=== PATIENT | male | born 1975 | race Caucasian/White ===

== ENCOUNTER 2019-11-22 08:19 | Emergency (ER) | payer OTHER ==
[~2019-11-22] VITALS: Ht 170.2 cm; Wt 72.2 kg
[2019-11-22 09:38] LABS: BILIRUBIN,URINE NEGATIVE (NEG); CLARITY,URINE CLEAR; COLOR,URINE YELLOW; NITRITE,URINE NEGATIVE (NEG); PH,URINE 5.5 (<5.0-8.0); PROTEIN,URINE NEGATIVE (NEG-TRACE); UROBILINOGEN,URINE 0.2 mg/dL (0.2 mg/dL)
[2019-11-22 09:42] LABS: AMPHETAMINE/METHAMPHETAMINE NEG (NEG); BARBITURATES NEG (NEG); BENZODIAZEPINES NEG (NEG); CANNABINOIDS NEG (NEG); COCAINE NEG (NEG); METHADONE NEG (NEG); OPIATES NEG (NEG); PHENCYCLIDINE NEG (NEG)
[2019-11-22 09:49] LABS: BACTERIA,URINE FEW /HPF (0-FEW); SQUAMOUS EPITHELIAL CELL,UR FEW /LPF
[2019-11-22 09:50] LABS: RBC,URINE OCC /HPF (0-2)
[2019-11-22] MEDS ORDERED: IV NORMAL SALINE 1000ML BAG 1,000 ML IV ONE (10:00)
[2019-11-22 10:04] LABS: BASO # 0.1 x10^3/uL (0.0-0.2); BASO % 1 % (0-3); EOS # 0.2 x10^3/uL (0.0-0.7); EOS % 3 % (0-3); HEMATOCRIT 43.1 % (39.0-53.0); HEMOGLOBIN 15.1 g/dL (13.0-17.5); LYMPH # 2.3 x10^3/uL (1.0-4.8); LYMPH % 38 % (24-48); MEAN CORPUSCULAR HEMOGLOBIN 32 pg (25-35); MEAN CORPUSCULAR HGB CONC 35 g/dL (31-37); MEAN CORPUSCULAR VOLUME 92 fL (79-100); MONO # 0.6 x10^3/uL (0.0-1.1); MONO % 9 % (0-9); NEUT % 49 % (31-73); PLATELET COUNT 208 x10^3/uL (140-400); RED BLOOD COUNT 4.67 x10^6/uL (4.30-5.70); RED CELL DISTRIBUTION WIDTH 12.9 % (11.5-14.5); WHITE BLOOD COUNT 6.2 x10^3/uL (4.0-11.0)
[2019-11-22 10:13] LABS: CALCIUM 8.6 mg/dL (8.5-10.1); CREATININE 1.1 mg/dL (0.7-1.3); GFR 72.7; POTASSIUM 4.7 mmol/L (3.5-5.1)
[2019-11-22 10:21] LABS: ALBUMIN 3.6 g/dL (3.4-5.0); ALBUMIN/GLOBULIN RATIO 1.2 (1.0-1.7); MAGNESIUM 2.2 mg/dL (1.8-2.4); TOTAL BILIRUBIN 0.3 mg/dL (0.2-1.0); TOTAL PROTEIN 6.6 g/dL (6.4-8.2)
--- NOTE | 2019-11-22 10:38 | RAD ---
EXAM: Head CT without contrast. HISTORY: Headache. TECHNIQUE: Computed tomographic images of the head were obtained without contrast. *One or more of the following individualized dose reduction techniques were utilized for this examination: 1. Automated exposure control. 2. Adjustment of the mA and/or kV according to patient size. 3. Use of iterative reconstruction technique. COMPARISON: None. FINDINGS: There is no acute or subacute extra-axial or intraparenchymal hemorrhage. There is no mass effect or midline shift. There is no hydrocephalus. The snider-white matter differentiation pattern is intact. There is an incidental right meek bullosa. There is mild ethmoid sinus mucosal thickening. The mastoid air cells are clear. The orbits are unremarkable. There is no calvarial lesion. IMPRESSION: No acute intracranial findings. Electronically signed by: Makayla Escamilla MD (11/22/2019 10:35 AM) [id number]
--- NOTE | 2019-11-22 11:28 | PHYS DOC ---
Past Medical History Past Medical History: No Pertinent History Past Surgical History: No Surgical History Smoking Status: Never Smoker Alcohol Use: Occasionally General Adult EDM: Chief Complaint: DIZZY/LIGHT HEADED HPI: HPI: Patient is a 44 year old male who presented to ER today for evaluation of nausea general weakness, headache, dizziness for 4 days. Patient denies any abdominal pain, no fever, no cough. Patient also complained of pain with urination, has the urge to urinate but not much coming out. Patient denies being exposed to anybody who tested positive for COVID-19. Review of Systems: Review of Systems: Constitutional: Denies fever or chills. [] Eyes: Denies change in visual acuity. [] HENT: Denies nasal congestion or sore throat. [] Respiratory: Denies cough or shortness of breath. [] Cardiovascular: Denies chest pain or edema. [] GI: Denies abdominal pain, nausea, vomiting, bloody stools or diarrhea. [] : Positive for dysuria and urgency Musculoskeletal: Denies back pain or joint pain. [] Integument: Denies rash. [] Neurologic: Positive headache, positive for general weakness.] Endocrine: Denies polyuria or polydipsia. [] Lymphatic: Denies swollen glands. [] Psychiatric: Denies depression or anxiety. [] Heart Score: Risk Factors: Risk Factors: DM, Current or recent (<one month) smoker, HTN, HLP, family history of CAD, obesity. Risk Scores: Score 0 - 3: 2.5% MACE over next 6 weeks - Discharge Home Score 4 - 6: 20.3% MACE over next 6 weeks - Admit for Clinical Observation Score 7 - 10: 72.7% MACE over next 6 weeks - Early Invasive Strategies Current Medications: Current Medications Medications (Trade) Dose Ordered Sig/Marcela Start Time Stop Time Status Last Admin Dose Admin Sodium Chloride 1,000 ml @ 1,000 mls/hr 1X ONCE 11/22/19 10:00 11/22/19 10:59 DC 11/22/19 10:00 1,000 MLS/HR Allergies: Allergies: Allergies Coded Allergies Type Severity Reaction Last Updated Verified No Known Drug Allergies 11/22/19 No Physical Exam: PE: Constitutional: Well developed, well nourished, no acute distress, non-toxic appearance. [] HENT: Normocephalic, atraumatic, bilateral external ears normal, oropharynx moist, no oral exudates, nose normal. [] Eyes: PERRLA, EOMI, conjunctiva normal, no discharge. [] Neck: Normal range of motion, no tenderness, supple, no stridor. [] Cardiovascular:Heart rate regular rhythm, no murmur [] Lungs & Thorax: Bilateral breath sounds clear to auscultation [] Abdomen: Bowel sounds normal, soft, no tenderness, no masses, no pulsatile masses. [] Skin: Warm, dry, no erythema, no rash. [] Back: No tenderness, no CVA tenderness. [] Extremities: No tenderness, no cyanosis, no clubbing, ROM intact, no edema. [] Neurologic: Alert and oriented X 3, normal motor function, normal sensory function, no focal deficits noted. [] Psychologic: Affect normal, judgement normal, mood normal. [] Current Patient Data: Labs: Laboratory Tests Test 11/22/19 09:20 11/22/19 09:55 Urine Collection Type Unknown Urine Color Yellow Urine Clarity Clear Urine pH 5.5 (<5.0-8.0) Urine Specific [place] >=1.030 (1.000-1.030) Urine Protein Negative mg/dL (NEG-TRACE) Urine Glucose (UA) Negative mg/dL (NEG) Urine Ketones (Stick) Negative mg/dL (NEG) Urine Blood Negative (NEG) Urine Nitrite Negative (NEG) Urine Bilirubin Negative (NEG) Urine Urobilinogen Dipstick 0.2 mg/dL (0.2 mg/dL) Urine Leukocyte Esterase Small (NEG) Urine RBC Occ /HPF (0-2) Urine WBC 11-20 /HPF (0-4) Urine Squamous Epithelial Cells Few /LPF Urine Bacteria Few /HPF (0-FEW) Urine Mucus Marked /LPF Urine Opiates Screen Neg (NEG) Urine Methadone Screen Neg (NEG) Urine Barbiturates Neg (NEG) Urine Phencyclidine Screen Neg (NEG) Urine Amphetamine/Methamphetamine Neg (NEG) Urine Benzodiazepines Screen Neg (NEG) Urine Cocaine Screen Neg (NEG) Urine Cannabinoids Screen Neg (NEG) Urine Ethyl Alcohol Neg (NEG) White Blood Count 6.2 x10^3/uL (4.0-11.0) Red Blood Count 4.67 x10^6/uL (4.30-5.70) Hemoglobin 15.1 g/dL (13.0-17.5) Hematocrit 43.1 % (39.0-53.0) Mean Corpuscular Volume 92 fL (79-100) Mean Corpuscular Hemoglobin 32 pg (25-35) Mean Corpuscular Hemoglobin Concent 35 g/dL (31-37) Red Cell Distribution Width 12.9 % (11.5-14.5) Platelet Count 208 x10^3/uL (140-400) Neutrophils (%) (Auto) 49 % (31-73) Lymphocytes (%) (Auto) 38 % (24-48) Monocytes (%) (Auto) 9 % (0-9) Eosinophils (%) (Auto) 3 % (0-3) Basophils (%) (Auto) 1 % (0-3) Neutrophils # (Auto) 3.0 x10^3/uL (1.8-7.7) Lymphocytes # (Auto) 2.3 x10^3/uL (1.0-4.8) Monocytes # (Auto) 0.6 x10^3/uL (0.0-1.1) Eosinophils # (Auto) 0.2 x10^3/uL (0.0-0.7) Basophils # (Auto) 0.1 x10^3/uL (0.0-0.2) Sodium Level 142 mmol/L (136-145) Potassium Level 4.7 mmol/L (3.5-5.1) Chloride Level 109 mmol/L (98-107) H Carbon Dioxide Level 30 mmol/L (21-32) Anion Gap 3 (6-14) L Blood Urea Nitrogen 19 mg/dL (8-26) Creatinine 1.1 mg/dL (0.7-1.3) Estimated GFR (Cockcroft-Gault) 72.7 BUN/Creatinine Ratio 17 (6-20) Glucose Level 108 mg/dL (70-99) H Calcium Level 8.6 mg/dL (8.5-10.1) Magnesium Level 2.2 mg/dL (1.8-2.4) Total Bilirubin 0.3 mg/dL (0.2-1.0) Aspartate Amino Transferase (AST) 19 U/L (15-37) Alanine Aminotransferase (ALT) 53 U/L (16-63) Alkaline Phosphatase 67 U/L (46-116) Total Protein 6.6 g/dL (6.4-8.2) Albumin 3.6 g/dL (3.4-5.0) Albumin/Globulin Ratio 1.2 (1.0-1.7) Laboratory Tests 11/22/19 09:55 Laboratory Tests 11/22/19 09:55 Vital Signs: Vital Signs Date Time Temp Pulse Resp B/P (MAP) Pulse Ox O2 Delivery O2 Flow Rate FiO2 11/22/19 09:07 98.4 67 16 105/76 (86) 97 Room Air 98.4 EKG: EKG: [] Radiology/Procedures: Radiology/Procedures: [][facility] [address] [place] [address] IMAGING REPORT Signed PATIENT: PINO GARCIA ACCOUNT: [id number] : 1975 LOCATION: ER AGE: 44 SEX: M EXAM STATUS: REG ER ORD. PHYSICIAN: SLOANE AGUIRRE DO REASON: HEADACHE PROCEDURE: CT HEAD WO CONTRAST EXAM: Head CT without contrast. HISTORY: Headache. TECHNIQUE: Computed tomographic images of the head were obtained without contrast. *One or more of the following individualized dose reduction techniques were utilized for this examination: 1. Automated exposure control. 2. Adjustment of the mA and/or kV according to patient size. 3. Use of iterative reconstruction technique. COMPARISON: None. FINDINGS: There is no acute or subacute extra-axial or intraparenchymal hemorrhage. There is no mass effect or midline shift. There is no hydrocephalus. The snider-white matter differentiation pattern is intact. There is an incidental right meek bullosa. There is mild ethmoid sinus mucosal thickening. The mastoid air cells are clear. The orbits are unremarkable. There is no calvarial lesion. IMPRESSION: No acute intracranial findings. Electronically signed by: Makayla Cintron MD (11/22/2019 10:35 AM) [id number] DICTATED and SIGNED BY: MAKAYLA CINTRON MD DATE: 11/22/19 1035 Course & Med Decision Making: Course & Med Decision Making Pertinent Labs and Imaging studies reviewed. (See chart for details) Patient is a 44-year-old male who was evaluated in ER due to general weakness, headache, urinary symptoms. His lab work and x-ray studies show that he had a UTI. Patient was given IV fluid in ER, he feels better. Patient will be discharged home with antibiotic for UTI. Patient is amenable to plan of care. Marly Disclaimer: Marly Disclaimer: This electronic medical record was generated, in whole or in part, using a voice recognition dictation system. Departure Departure Impression: Primary Impression: UTI (urinary tract infection) Additional Impression: Headache Disposition: HOME, SELF-CARE Condition: IMPROVED Referrals: UNKNOWN PCP NAME (PCP) please follow up with your family doctor next week Patient Instructions: General Headache Without Cause, Urinary Tract Infection Additional Instructions: Thank you for visiting our Emergency Department. We appreciate you trusting us with your care. If any additional problems come up don't hesitate to return to visit us. Please follow up with your primary care provider so they can plan additional care if needed and know about the problem that you had. If symptoms worsen come back to the Emergency Department. Any concerning symptoms that start such as chest pain, shortness of air, weakness or numbness on one side of the body, running high fevers or any other concerning symptoms return to the ER. Scripts Ciprofloxacin Hcl (CIPRO) 500 Mg Tablet 1 TAB PO BID for 10 Days, #20 TAB 0 Refills Prov: SLOANE AGUIRRE DO 11/22/19 Justicifation of Admission Dx: Justifications for Admission: Justification of Admission Dx: N/A SLOANE AGUIRRE DO Nov 22, 2019 11:28
[2019-11-22] MEDS ORDERED: KETOROLAC 30 MG/ML VIAL. IVP ONE (11:30)
[2019-11-22 12:04] VITALS: BP 104/57
[2019-11-22] MEDS ORDERED: CIPR500T94 PO (12:08)
[2019-11-22] MEDS ORDERED: AZITHROMYCIN 250 MG TABLET. PO ONE (12:15)
[2019-11-22] MEDS ORDERED: cefTRIAXone IV Push 1 GM VIAL. IVP ONE (12:15)
== END 2019-11-22 13:14 | disposition home or self-care (01) ==
LOC: ER 08:19
DX: N39.0 Urinary tract infection, site not specified (principal); R51 Headache; R42 Dizziness and giddiness
CPT/HCPCS: 36415; 70450; 80053; 80307; 81001; 83735; 85025; 87086; 96361; 96374; 96375; 99284; J0696; J1885; J7030

== ENCOUNTER 2019-11-26 13:08 | Emergency (ER) | payer OTHER ==
[~2019-11-26] VITALS: Ht 170.2 cm; Wt 72.0 kg
[~2019-11-26 13:08] MED LIST: CIPR500T94 PO
--- NOTE | 2019-11-26 13:48 | PHYS DOC ---
Past Medical History Past Medical History: No Pertinent History Past Surgical History: No Surgical History Smoking Status: Never Smoker Alcohol Use: Occasionally General Adult EDM: Chief Complaint: HEADACHE HPI: HPI: 44-year-old male past medical history significant for former tobacco dependence (quit 2 weeks ago), presents to the ED with complaints of dizziness, nausea, anorexia, body aches, dry cough and fatigue for the past 6 days. Patient states he was seen in the ED 3-4 days ago and is on abx for a uti. Went to [facility] for a covid test yesterday, result pending. CT head 11/21 negative. No further trauma, fall or head injury. Currently no dizziness, only dizziness with sudden change in positions (sitting to standing, etc). No h/o kidney stones. Reports compliance with abx (cipro). States sometimes when he pees his urine "sprays," denies any inserted FBs. Refuses repeat U/A. ROS: Denies associated fever, chills, neck stiffness, headache, diaphoresis, chest pain or pressure, nausea, vomiting, diarrhea, flank pain, radicular pain, dysuria, hematuria, abdominal pain, urethral discharge, rash or leg swelling. Allergies: Allergies: Allergies Coded Allergies Type Severity Reaction Last Updated Verified No Known Drug Allergies 11/22/19 No Physical Exam: PE: Constitutional: Well developed, well nourished, no acute distress, non-toxic appearance. [] HENT: Normocephalic, atraumatic, bilateral external ears normal, oropharynx dry, no oral exudates, nose normal. [] Eyes: EOMI, conjunctiva normal, no discharge. [] no nystagmus, no active dizziness Neck: Normal range of motion, no tenderness, supple, no stridor. [] Cardiovascular:Heart rate regular rhythm, no murmur [] Lungs & Thorax: Bilateral breath sounds clear to auscultation [] Abdomen: Bowel sounds normal, soft, no tenderness, no masses, no pulsatile masses. [] Skin: Warm, dry, no erythema, no rash. [] Back: No tenderness, no CVA tenderness. [] Extremities: No tenderness, no cyanosis, no clubbing, ROM intact, no edema. [] Neurologic: Alert and oriented X 3, normal motor function, normal sensory function, no focal deficits noted. [] Psychologic: Affect normal, judgement normal, mood normal. [] Current Patient Data: Vital Signs: Vital Signs Date Time Temp Pulse Resp B/P (MAP) Pulse Ox O2 Delivery O2 Flow Rate FiO2 11/26/19 13:19 98.7 82 20 106/76 (86) 99 Room Air 98.7 Radiology/Procedures: Radiology/Procedures: IMAGING REPORT Signed PATIENT: PINO GARCIA ACCOUNT: [id number] : 1975 LOCATION: ER AGE: 44 SEX: M EXAM STATUS: REG ER ORD. PHYSICIAN: JAMES JAIN DO REASON: cough PROCEDURE: PORTABLE CHEST 1V AP chest. HISTORY: Cough AP view was taken of the chest. Lungs are clear. Heart is normal in size. There is no pleural effusion. IMPRESSION: 1. No acute chest disease. Electronically signed by: Yazan Wright MD (11/26/2019 2:43 PM) [id number] DICTATED and SIGNED BY: YAZAN WRIGHT MD DATE: 11/26/19 1443 Impression: Concern for viral syndrome, covid 19 suspicious in a HD stable male, no tachycardia, fever hypoxia or respiratory distress. Will dc home w/antiemetics and supportive care. Chest x-ray with no pneumonia. Normal renal function and CK. Steady gait. No concern for life-threatening processes at this time (s epsis, respiratory distress, renal failure, rhadbo, meningitis) given patient's history and physical exam. Will encourage PMD follow-up in 24 to 48 hours. Strict ED return precautions given for respiratory distress, difficulties breathing, neuro deficits or chest pain. All of pts' questions were answered and he was stable at time of discharge. Course & Med Decision Making: Course & Med Decision Making Pertinent Labs and Imaging studies reviewed. (See chart for details) [] Dragon Disclaimer: Dragon Disclaimer: This electronic medical record was generated, in whole or in part, using a voice recognition dictation system. Departure Departure Impression: Primary Impression: Viral syndrome Additional Impression: Suspected COVID-19 virus infection Disposition: HOME, SELF-CARE Condition: STABLE Referrals: UNKNOWN PCP NAME (PCP) GEOFFREY GOMEZ MD Patient Instructions: Viral Syndrome Additional Instructions: You have been tested for or diagnosed with COVID-19. It is an infection caused by a new type of coronavirus. COVID-19 will cause cold-like or mild flu symptoms in most. It can cause more severe symptoms like problems breathing in some. There is no treatment for COVID-19. The body will clear the infection over time. Self-care will help to ease discomfort. Steps to Take: Self-Care Rest as needed. Healthy habits may help you feel better. Steps include: Choose healthy foods including fruits and vegetables. Drink water throughout the day. Get plenty of sleep each night. If you smoke, try to quit. It may ease breathing. Avoid alcohol. Keep Others Healthy The virus can spread to others. Droplets are released every time you sneeze or cough. The droplets can get into the mouth, nose, or eyes of people near you and lead to infection. To lower the chances of spreading COVID-19 to others: Stay at home until your doctor has said it is safe to leave. If you tested posit hu this will mean staying isolated until both of the following are true: At least 7 days have passed since the start of illness. You are free of fever for at least 72 hours without the use of medicine. During this time: - Avoid public areas, events, or transportation. Do not return to work or school until your doctor has said it is safe to do so. - Call ahead if you need to go to a medical center. Let them know you may have COVID-19. It will help them guide you where to go. They may also ask you to wear a facemask when you come to the office. - If you call for emergency medical services, let them know you may have COVID-19. While at home: - Try to avoid close contact with others. Stay about 6 feet away. - If possible, spend most of your time in a separate room from others. - Use a face mask if you will be in close contact with others such as sharing a room or vehicle. - Have someone wipe down common surfaces in the home. Use household lidder every day on areas like doorknobs, counters, or sinks. - Cough or sneeze into a tissue. Throw the tissue away right after use. If a tissue is not available, cough or sneeze into your elbow. - Wash your hands often. Wash them after sneezing or coughing. Use soap and water and wash for at least 20 seconds. Alcohol based hand equipment or machinery cleaner can be used if soap and water is not available. - Do not prepare food for others. Avoid sharing personal items like forks, spoons, or toothbrushes. - Avoid close contact with pets while you are sick. There is no evidence of the virus passing to pets. This is a safety step until more is known about this virus. Isolation can be frustrating. Social interaction can help. Keep in touch with friends and family through phone and tech options. You can still interact with others in your home, just keep a safe distance of about 6 feet. Follow-up: Your doctors office will check in with you to see if there are any changes in your health. You may be asked to keep track of symptoms to share with them. They will also let you know when you are clear to be in public again. Problems to Look Out For: Contact your doctor if your recovery is not going as you expect. Get emergency care if you have problems such as: - Trouble breathing - Nonstop chest pain or pressure - Changes in awareness, confusion, or problems waking - Lips or face have bluish color - Worsening of symptoms If you think you have an emergency, call for emergency medical services right away. As taken from [facility] [place] [facility] Scripts Ondansetron (ONDANSETRON ODT) 4 Mg Tab.rapdis 1 TAB PO PRN Q6-8HRS, #16 TAB Prov: JAMES JAIN DO 11/26/19 Justicifation of Admission Dx: Justifications for Admission: Justification of Admission Dx: N/A JAMES JAIN DO Nov 26, 2019 13:48
[2019-11-26 13:50] LABS: BASO % 1 % (0-3); EOS # 0.1 x10^3/uL (0.0-0.7); EOS % 2 % (0-3); HEMOGLOBIN 15.9 g/dL (13.0-17.5); LYMPH % 28 % (24-48); MEAN CORPUSCULAR HEMOGLOBIN 31 pg (25-35); MEAN CORPUSCULAR HGB CONC 34 g/dL (31-37); MEAN CORPUSCULAR VOLUME 93 fL (79-100); MONO # 0.5 x10^3/uL (0.0-1.1); MONO % 7 % (0-9); NEUT # 4.3 x10^3/uL (1.8-7.7); NEUT % 62 % (31-73); PLATELET COUNT 235 x10^3/uL (140-400); RED BLOOD COUNT 5.07 x10^6/uL (4.30-5.70); RED CELL DISTRIBUTION WIDTH 12.9 % (11.5-14.5)
[2019-11-26 14:00] LABS: CALCIUM 8.8 mg/dL (8.5-10.1); CREATININE 1.1 mg/dL (0.7-1.3); GFR 72.7; POTASSIUM 4.2 mmol/L (3.5-5.1)
[2019-11-26 14:06] LABS: ALBUMIN 3.9 g/dL (3.4-5.0); ALBUMIN/GLOBULIN RATIO 1.2 (1.0-1.7); TOTAL BILIRUBIN 0.6 mg/dL (0.2-1.0); TOTAL PROTEIN 7.2 g/dL (6.4-8.2)
--- NOTE | 2019-11-26 14:45 | RAD ---
AP chest. HISTORY: Cough AP view was taken of the chest. Lungs are clear. Heart is normal in size. There is no pleural effusion. IMPRESSION: 1. No acute chest disease. Electronically signed by: Yazan Wright MD (11/26/2019 2:43 PM) [id number]
[2019-11-26 14:52] VITALS: BP 118/71
[2019-11-26] MEDS ORDERED: ONDA4TAB12 PO (15:21)
== END 2019-11-26 15:05 | disposition home or self-care (01) ==
LOC: ER 13:08
DX: B34.9 Viral infection, unspecified (principal); Z20.828 Contact with and (suspected) exposure to other viral communicable diseases
CPT/HCPCS: 36415; 71045; 80053; 82550; 85025; 99284

== ENCOUNTER 2020-04-19 11:00 | Observation (INO) | payer OTHER ==
[~2020-04-19] VITALS: Ht 170.2 cm; Wt 75.0 kg
[2020-04-19] VITALS (7 sets, daily range): BP systolic 107–131; BP diastolic 61–78
[~2020-04-19 11:00] MED LIST changes: +ONDA4TAB12 PO
[2020-04-19] MEDS ORDERED: ONDANSETRON PF 4 MG/2 ML VIAL. IVP ONE (11:15)
[2020-04-19] MEDS ORDERED: KETOROLAC 15 MG/ML VIAL. IVP ONE (11:15)
[2020-04-19] MEDS ORDERED: IV NORMAL SALINE 500ML BAG 500 ML IV ONE (11:15)
--- NOTE | 2020-04-19 11:22 | ED.ADGEN ---
Past Medical History Past Medical History: No Pertinent History Past Surgical History: No Surgical History Smoking Status: Never Smoker Alcohol Use: Occasionally General Adult EDM: Chief Complaint: ABDOMINAL PAIN HPI: HPI: Patient is a 44 year old male sent to the emergency department by urgent care for rule out appendicitis. Per urgent care physician patient had a positive psoas signs and rebound tenderness. Patient states he has been having midline low abdominal pain since yesterday. States he had eaten [employer]ipot[employer] intake and abdomen went to work. Has had numerous episodes of emesis, no diarrhea constipation. Patient states emesis been nonbloody or bilious. Patient denies any raw foods, antibiotics, recent travel, sick contacts. Patient states he had eaten meat but it did not look undercooked. Denies any history of any food allergies. Denies alcohol, tobacco, drugs. No surgical history. Patient s tates the pain is constant and a little bit worse with movement, rated as a 7 out of 10. Review of Systems: Review of Systems: Constitutional: Denies fever or chills. [] Eyes: Denies change in visual acuity. [] HENT: Denies nasal congestion or sore throat. [] Respiratory: Denies cough or shortness of breath. [] Cardiovascular: Denies chest pain or edema. [] GI: No abdominal pain, nausea, vomiting, no diarrhea or constipation : Denies dysuria. [] Musculoskeletal: Denies back pain or joint pain. [] Integument: Denies rash. [] Neurologic: Denies headache, focal weakness or sensory changes. [] Endocrine: Denies polyuria or polydipsia. [] Lymphatic: Denies swollen glands. [] Psychiatric: Denies depression or anxiety. [] Current Medications: Current Medications Medications (Trade) Dose Ordered Sig/Marcela Start Time Stop Time Status Last Admin Dose Admin Info (CONTRAST GIVEN -- Rx MONITORING) 1 each PRN DAILY PRN 04/19/20 12:00 04/21/20 11:59 Iohexol (Omnipaque 300 Mg/ml) 75 ml 1X ONCE 04/19/20 12:00 04/19/20 12:01 DC 04/19/20 11:57 75 ML Ketorolac Tromethamine (Toradol 15mg Vial) 15 mg 1X ONCE 04/19/20 11:15 04/19/20 11:16 DC 04/19/20 11:34 15 MG Ondansetron HCl (Zofran) 4 mg 1X ONCE 04/19/20 11:15 04/19/20 11:16 DC 04/19/20 11:32 4 MG Sodium Chloride 500 ml @ 500 mls/hr 1X ONCE 04/19/20 11:15 04/19/20 12:14 DC 04/19/20 11:33 500 MLS/HR Allergies: Allergies: Physical Exam: PE: Constitutional: Well developed, well nourished, mild acute distress, non-toxic appearance. [] HENT: Normocephalic, atraumatic, bilateral external ears normal, oropharynx moist, no oral exudates, nose normal. [] Eyes: PERRLA, EOMI, conjunctiva normal, no discharge. [] Neck: Normal range of motion, no tenderness, supple, no stridor. [] Cardiovascular:Heart rate regular rhythm, no murmur [] Lungs & Thorax: Bilateral breath sounds clear to auscultation [] Abdomen: Nondistended, bilateral lower quadrant abdominal pain, negative Chapman sign, positive McBurney's point tenderness, negative Rovsing sign, negative rebound Skin: Warm, dry, no erythema, no rash. [] Back: No tenderness, no CVA tenderness. [] Extremities: No tenderness, no cyanosis, no clubbing, ROM intact, no edema. [] Neurologic: Alert and oriented X 3, normal motor function, normal sensory fu nction, no focal deficits noted. [] Psychologic: Affect normal, judgement normal, mood normal. [] Current Patient Data: Labs: Laboratory Tests Test 04/19/20 11:15 04/19/20 11:18 04/19/20 11:35 Urine Collection Type Unknown Urine Color Yellow Urine Clarity Clear Urine pH 6.0 (<5.0-8.0) Urine Specific [place] 1.020 (1.000-1.030) Urine Protein Negative mg/dL (NEG-TRACE) Urine Glucose (UA) Negative mg/dL (NEG) Urine Ketones (Stick) Negative mg/dL (NEG) Urine Blood Negative (NEG) Urine Nitrite Negative (NEG) Urine Bilirubin Negative (NEG) Urine Urobilinogen Dipstick 0.2 mg/dL (0.2 mg/dL) Urine Leukocyte Esterase Negative (NEG) Urine RBC 0 /HPF (0-2) Urine WBC 0 /HPF (0-4) Urine Squamous Epithelial Cells Few /LPF Urine Bacteria 0 /HPF (0-FEW) White Blood Count 23.5 x10^3/uL (4.0-11.0) H Red Blood Count 5.11 x10^6/uL (4.30-5.70) Hemoglobin 16.0 g/dL (13.0-17.5) Hematocrit 46.8 % (39.0-53.0) Mean Corpuscular Volume 92 fL (79-100) Mean Corpuscular Hemoglobin 31 pg (25-35) Mean Corpuscular Hemoglobin Concent 34 g/dL (31-37) Red Cell Distribution Width 13.0 % (11.5-14.5) Platelet Count 258 x10^3/uL (140-400) Neutrophils (%) (Auto) 88 % (31-73) H Lymphocytes (%) (Auto) 7 % (24-48) L Monocytes (%) (Auto) 5 % (0-9) Eosinophils (%) (Auto) 0 % (0-3) Basophils (%) (Auto) 1 % (0-3) Neutrophils # (Auto) 20.7 x10^3/uL (1.8-7.7) H Lymphocytes # (Auto) 1.5 x10^3/uL (1.0-4.8) Monocytes # (Auto) 1.1 x10^3/uL (0.0-1.1) Eosinophils # (Auto) 0.0 x10^3/uL (0.0-0.7) Basophils # (Auto) 0.1 x10^3/uL (0.0-0.2) Segmented Neutrophils % 87 % (35-66) H Band Neutrophils % 1 % (0-9) Lymphocytes % 6 % (24-48) L Monocytes % 6 % (0-10) Platelet Estimate Adequate (ADEQUATE) Sodium Level 138 mmol/L (136-145) Potassium Level 3.8 mmol/L (3.5-5.1) Chloride Level 99 mmol/L (98-107) Carbon Dioxide Level 29 mmol/L (21-32) Anion Gap 10 (6-14) Blood Urea Nitrogen 11 mg/dL (8-26) Creatinine 0.9 mg/dL (0.7-1.3) Estimated GFR (Cockcroft-Gault) 91.7 BUN/Creatinine Ratio 12 (6-20) Glucose Level 136 mg/dL (70-99) H Calcium Level 8.9 mg/dL (8.5-10.1) Total Bilirubin 1.7 mg/dL (0.2-1.0) H Aspartate Amino Transferase (AST) 22 U/L (15-37) Alanine Aminotransferase (ALT) 78 U/L (16-63) H Alkaline Phosphatase 79 U/L (46-116) Total Protein 7.6 g/dL (6.4-8.2) Albumin 4.2 g/dL (3.4-5.0) Albumin/Globulin Ratio 1.2 (1.0-1.7) Lipase 49 U/L (73-393) L Lactic Acid Level 1.1 mmol/L (0.4-2.0) Laboratory Tests 04/19/20 11:18 Laboratory Tests 04/19/20 11:18 Vital Signs: Vital Signs Date Time Temp Pulse Resp B/P (MAP) Pulse Ox O2 Delivery O2 Flow Rate FiO2 04/19/20 11:44 102 120/70 (87) 98 Room Air 04/19/20 11:17 98.8 16 98.8 EKG: EKG: [] Heart Score: Risk Factors: Risk Factors: DM, Current or recent (<one month) smoker, HTN, HLP, family history of CAD, obesity. Risk Scores: Score 0 - 3: 2.5% MACE over next 6 weeks - Discharge Home Score 4 - 6: 20.3% MACE over next 6 weeks - Admit for Clinical Observation Score 7 - 10: 72.7% MACE over next 6 weeks - Early Invasive Strategies Radiology/Procedures: Radiology/Procedures: CT abdomen/pelvis with contrast 04/19/2020 11:43 AM INDICATION: Right lower quadrant abdominal pain COMPARISON: None available TECHNIQUE: Multiple axial CT images of the abdomen and pelvis were obtained after the intravenous administration of 75 mL Omnipaque 300. Coronal and sagittal reformats are provided. FINDINGS: Visualized portions of the lung bases are clear. Heart size is within normal limits. No suspicious hepatic masses are identified. Diffuse hepatic steatosis. Spleen, bilateral adrenal glands, and pancreas are normal in appearance. Gallbladder is present without adjacent inflammatory changes. The kidneys enhance symmetrically. There is no suspicious renal mass. There is no hydronephrosis. There are no suspected calculi within the kidneys, ureters or urinary bladder. The abdominal aorta is normal in course and caliber. There are no pathologically enlarged lymph nodes in the abdomen and pelvis. There is no abdominal free fluid. There is no free intraperitoneal air. Appendix is dilated measuring 1.5 cm with adjacent inflammatory changes compatible with acute appendicitis. No periappendiceal abscess or free air. No bowel obstruction. IMPRESSION: 1. Acute appendicitis predominantly involving the appendiceal tip. No perforation or free air. No abscess. 2. Diffuse hepatic steatosis. [] Course & Med Decision Making: Course & Med Decision Making Pertinent Labs and Imaging studies reviewed. (See chart for details) [] Dragon Disclaimer: Dragon Disclaimer: This electronic medical record was generated, in whole or in part, using a voice recognition dictation system. Departure Departure Impression: Primary Impression: Acute appendicitis Disposition: ADMITTED INPT THIS HOSP Admitting Physician: BRENDA Condition: GUARDED Referrals: UNKNOWN PCP NAME (PCP) SHRAVAN ACEVEDO MD Apr 19, 2020 11:22
[2020-04-19 11:27] LABS: BASO # 0.1 x10^3/uL (0.0-0.2); BASO % 1 % (0-3); EOS % 0 % (0-3); HEMATOCRIT 46.8 % (39.0-53.0); LYMPH # 1.5 x10^3/uL (1.0-4.8); LYMPH % 7 % (24-48); MEAN CORPUSCULAR HEMOGLOBIN 31 pg (25-35); MEAN CORPUSCULAR HGB CONC 34 g/dL (31-37); MEAN CORPUSCULAR VOLUME 92 fL (79-100); MONO # 1.1 x10^3/uL (0.0-1.1); MONO % 5 % (0-9); NEUT # 20.7 x10^3/uL (1.8-7.7); NEUT % 88 % (31-73); PLATELET COUNT 258 x10^3/uL (140-400); RED BLOOD COUNT 5.11 x10^6/uL (4.30-5.70); WHITE BLOOD COUNT 23.5 x10^3/uL (4.0-11.0)
[2020-04-19 11:28] LABS: BILIRUBIN,URINE NEGATIVE (NEG); CLARITY,URINE CLEAR; COLOR,URINE YELLOW; NITRITE,URINE NEGATIVE (NEG); PROTEIN,URINE NEGATIVE (NEG-TRACE); UROBILINOGEN,URINE 0.2 mg/dL (0.2 mg/dL)
[2020-04-19 11:35] LABS: CALCIUM 8.9 mg/dL (8.5-10.1); CREATININE 0.9 mg/dL (0.7-1.3); GFR 91.7; POTASSIUM 3.8 mmol/L (3.5-5.1)
[2020-04-19 11:42] LABS: ALBUMIN 4.2 g/dL (3.4-5.0); ALBUMIN/GLOBULIN RATIO 1.2 (1.0-1.7); TOTAL BILIRUBIN 1.7 mg/dL (0.2-1.0); TOTAL PROTEIN 7.6 g/dL (6.4-8.2)
[2020-04-19 11:48] LABS: BACTERIA,URINE 0 /HPF (0-FEW); RBC,URINE 0 /HPF (0-2); WBC,URINE 0 /HPF (0-4)
[2020-04-19] MEDS ORDERED: IOHEXOL 300 MG/ML 100ML VIAL. IV ONE (12:00)
[2020-04-19] MEDS ORDERED: CONTRAST GIVEN. MC PRN (12:00)
[2020-04-19 12:01] LABS: % BANDS 1 % (0-9); % LYMPHS 6 % (24-48); % MONOS 6 % (0-10); % SEGS 87 % (35-66); PLT ESTIMATE ADEQUATE (ADEQUATE)
--- NOTE | 2020-04-19 12:13 | RAD ---
PQRS Compliance Statement: One or more of the following individualized dose reduction techniques were utilized for this examinat ion: 1. Automated exposure control 2. Adjustment of the mA and/or kV according to patient size 3. Use of iterative reconstruction technique CT abdomen/pelvis with contrast 04/19/2020 11:43 AM INDICATION: Right lower quadrant abdominal pain COMPARISON: None available TECHNIQUE: Multiple axial CT images of the abdomen and pelvis were obtained after the intravenous adm inistration of 75 mL Omnipaque 300. Coronal and sagittal reformats are provided. FINDINGS: Visualized portions of the lung bases are clear. Heart size is within normal limits. No suspicious hepatic masses are identified. Diffuse hepatic steatosis. Spleen, bilateral adrenal gla nds, and pancreas are normal in appearance. Gallbladder is present without adjacent inflammatory tello ges. The kidneys enhance symmetrically. There is no suspicious renal mass. There is no hydronephrosis. The re are no suspected calculi within the kidneys, ureters or urinary bladder. The abdominal aorta is normal in course and caliber. There are no pathologically enlarged lymph nodes in the abdomen and pelvis. There is no abdominal free fluid. There is no free intraperitoneal air. Appendix is dilated measuring 1.5 cm with adjacent inflammatory changes compatible with acute appendi citis. No periappendiceal abscess or free air. No bowel obstruction. IMPRESSION: 1. Acute appendicitis predominantly involving the appendiceal tip. No perforation or free air. No abs cess. 2. Diffuse hepatic steatosis. FOR INTERNAL CODING PURPOSES Critical result: Findings discussed with Dr. Zee at 04/19/2020 12:07 PM. RESULT CODE: (C) Electronically signed by: Hetal Sosa MD (04/19/2020 12:11 PM) [facility]
[2020-04-19] MEDS ORDERED: ONDANSETRON PF 4 MG/2 ML VIAL. IV PRN (12:30)
[2020-04-19] MEDS ORDERED: PIPERACILLIN/TAZOBACTAM 3.375 GM in IV NORMAL SALINE 50ML 50 ML IV ONE (12:30)
[2020-04-19] MEDS ORDERED: MORPHINE SULFATE 4 MG/ML VIAL. IV PRN (12:30)
[2020-04-19] MEDS: IV NORMAL SALINE 1000ML BAG 1,000 ML IV SCH ×2 (12:30→22:30)
--- NOTE | 2020-04-19 12:41 | PDOC1 ---
History and Physical Date of Admission Date of Admission DATE: 04/19/20 TIME: 12:30 Identification/Chief Complaint Chief Complaint Abdominal pain Source Source: Chart review, Patient History of Present Illness History of Present Illness Patient is a 44-year-old male who presents with complaint of worsening abdominal pain since yesterday. Patient reports sharp pain, 7/10, that is aggravated by movement. He admits to some associated nausea and vomiting. Upon arrival in the ED, CT abdomen pelvis showed evidence of acute appendicitis. General surgery was consulted in the ED. Was asked to admit patient for further medical management. Past Medical History Past Medical History Denies pertinent medical history Past Surgical History Past Surgical History Denies surgical history Family History Family History Denies pertinent family history Social History Smoke: Quit ALCOHOL: occassional Drugs: None Current Medications Current Medications Current Medications Sodium Chloride 500 ml @ 500 mls/hr 1X ONCE IV Last administered on 04/19/20at 11:33; Start 04/19/20 at 11:15; Stop 04/19/20 at 12:14; Status DC Ketorolac Tromethamine (Toradol 15mg Vial) 15 mg 1X ONCE IVP Last administered on 04/19/20at 11:34; Start 04/19/20 at 11:15; Stop 04/19/20 at 11:16; Status DC Ondansetron HCl (Zofran) 4 mg 1X ONCE IVP Last administered on 04/19/20at 11:32; Start 04/19/20 at 11:15; Stop 04/19/20 at 11:16; Status DC Iohexol (Omnipaque 300 Mg/ml) 75 ml 1X ONCE IV Last administered on 04/19/20at 11:57; Start 04/19/20 at 12:00; Stop 04/19/20 at 12:01; Status DC Info (CONTRAST GIVEN -- Rx MONITORING) 1 each PRN DAILY PRN MC SEE COMMENTS; Start 04/19/20 at 12:00; Stop 04/21/20 at 11:59 Piperacillin Sod/ Tazobactam Sod 3.375 gm/Sodium Chloride 50 ml @ 100 mls/hr 1X ONCE IV ; Start 04/19/20 at 12:30; Stop 04/19/20 at 12:59 Active Scripts Active Ondansetron Odt (Ondansetron) 4 Mg Tab.rapdis 1 Tab PO PRN Q6-8HRS Cipro (Ciprofloxacin Hcl) 500 Mg Tablet 1 Tab PO BID 10 Days Allergies Allergies: Coded Allergies: No Known Drug Allergies (Unverified , 11/22/19) ROS Review of System GENERAL: No history of weight change, weakness or fevers. SKIN: No bruising, hair changes or rashes. EYES: No blurred, double or loss of vision. NOSE AND THROAT: No history of nosebleeds, hoarseness or sore throat. HEART: Denies chest pain, denies palpitations. LUNGS: Denies cough, hemoptysis, wheezing or shortness of breath. GASTROINTESTINAL: Nausea, vomiting, abdominal pain. GENITOURINARY: Denies dysuria, frequency, urgency, hematuria. NEUROLOGIC: Denies history of numbness, tingling, tremor or weakness. PSYCHIATRIC: Denies anxiety, denies depression. ENDOCRINE: No history of heat or cold intolerance, polyuria or polydipsia. EXTREMITIES: Denies muscle weakness, joint pain, pain on walking or stiffness. Physical Exam Physical Exam General: Alert, Oriented X3, Cooperative, No acute distress HEENT: PERRLA, EOMI Lungs: Clear to auscultation, Normal air movement Heart: RRR, no murmurs Cardiovascular: S1, S2 Abdomen: Right lower quadrant tenderness, soft Extremities: No clubbing, No cyanosis Skin: No rashes, No significant lesion Neuro: Normal speech, Normal tone, Sensation intact Psych/Mental Status: Mental status NL, Mood NL Vitals Vitals Vital Signs Date Time Temp Pulse Resp B/P (MAP) Pulse Ox O2 Delivery O2 Flow Rate FiO2 04/19/20 11:17 98.8 92 16 120/72 (88) 98 Room Air 98.8 Labs Labs Laboratory Tests Test 04/19/20 11:15 04/19/20 11:18 04/19/20 11:35 Urine Collection Type Unknown Urine Color Yellow Urine Clarity Clear Urine pH 6.0 (<5.0-8.0) Urine Specific [place] 1.020 (1.000-1.030) Urine Protein Negative mg/dL (NEG-TRACE) Urine Glucose (UA) Negative mg/dL (NEG) Urine Ketones (Stick) Negative mg/dL (NEG) Urine Blood Negative (NEG) Urine Nitrite Negative (NEG) Urine Bilirubin Negative (NEG) Urine Urobilinogen Dipstick 0.2 mg/dL (0.2 mg/dL) Urine Leukocyte Esterase Negative (NEG) Urine RBC 0 /HPF (0-2) Urine WBC 0 /HPF (0-4) Urine Squamous Epithelial Cells Few /LPF Urine Bacteria 0 /HPF (0-FEW) White Blood Count 23.5 x10^3/uL (4.0-11.0) Red Blood Count 5.11 x10^6/uL (4.30-5.70) Hemoglobin 16.0 g/dL (13.0-17.5) Hematocrit 46.8 % (39.0-53.0) Mean Corpuscular Volume 92 fL (79-100) Mean Corpuscular Hemoglobin 31 pg (25-35) Mean Corpuscular Hemoglobin Concent 34 g/dL (31-37) Red Cell Distribution Width 13.0 % (11.5-14.5) Platelet Count 258 x10^3/uL (140-400) Neutrophils (%) (Auto) 88 % (31-73) Lymphocytes (%) (Auto) 7 % (24-48) Monocytes (%) (Auto) 5 % (0-9) Eosinophils (%) (Auto) 0 % (0-3) Basophils (%) (Auto) 1 % (0-3) Neutrophils # (Auto) 20.7 x10^3/uL (1.8-7.7) Lymphocytes # (Auto) 1.5 x10^3/uL (1.0-4.8) Monocytes # (Auto) 1.1 x10^3/uL (0.0-1.1) Eosinophils # (Auto) 0.0 x10^3/uL (0.0-0.7) Basophils # (Auto) 0.1 x10^3/uL (0.0-0.2) Segmented Neutrophils % 87 % (35-66) Band Neutrophils % 1 % (0-9) Lymphocytes % 6 % (24-48) Monocytes % 6 % (0-10) Platelet Estimate Adequate (ADEQUATE) Sodium Level 138 mmol/L (136-145) Potassium Level 3.8 mmol/L (3.5-5.1) Chloride Level 99 mmol/L (98-107) Carbon Dioxide Level 29 mmol/L (21-32) Anion Gap 10 (6-14) Blood Urea Nitrogen 11 mg/dL (8-26) Creatinine 0.9 mg/dL (0.7-1.3) Estimated GFR (Cockcroft-Gault) 91.7 BUN/Creatinine Ratio 12 (6-20) Glucose Level 136 mg/dL (70-99) Calcium Level 8.9 mg/dL (8.5-10.1) Total Bilirubin 1.7 mg/dL (0.2-1.0) Aspartate Amino Transf (AST/SGOT) 22 U/L (15-37) Alanine Aminotransferase (ALT/SGPT) 78 U/L (16-63) Alkaline Phosphatase 79 U/L (46-116) Total Protein 7.6 g/dL (6.4-8.2) Albumin 4.2 g/dL (3.4-5.0) Albumin/Globulin Ratio 1.2 (1.0-1.7) Lipase 49 U/L (73-393) Lactic Acid Level 1.1 mmol/L (0.4-2.0) Laboratory Tests Test 04/19/20 11:15 04/19/20 11:18 04/19/20 11:35 Urine Collection Type Unknown Urine Color Yellow Urine Clarity Clear Urine pH 6.0 (<5.0-8.0) Urine Specific [place] 1.020 (1.000-1.030) Urine Protein Negative mg/dL (NEG-TRACE) Urine Glucose (UA) Negative mg/dL (NEG) Urine Ketones (Stick) Negative mg/dL (NEG) Urine Blood Negative (NEG) Urine Nitrite Negative (NEG) Urine Bilirubin Negative (NEG) Urine Urobilinogen Dipstick 0.2 mg/dL (0.2 mg/dL) Urine Leukocyte Esterase Negative (NEG) Urine RBC 0 /HPF (0-2) Urine WBC 0 /HPF (0-4) Urine Squamous Epithelial Cells Few /LPF Urine Bacteria 0 /HPF (0-FEW) White Blood Count 23.5 x10^3/uL (4.0-11.0) Red Blood Count 5.11 x10^6/uL (4.30-5.70) Hemoglobin 16.0 g/dL (13.0-17.5) Hematocrit 46.8 % (39.0-53.0) Mean Corpuscular Volume 92 fL (79-100) Mean Corpuscular Hemoglobin 31 pg (25-35) Mean Corpuscular Hemoglobin Concent 34 g/dL (31-37) Red Cell Distribution Width 13.0 % (11.5-14.5) Platelet Count 258 x10^3/uL (140-400) Neutrophils (%) (Auto) 88 % (31-73) Lymphocytes (%) (Auto) 7 % (24-48) Monocytes (%) (Auto) 5 % (0-9) Eosinophils (%) (Auto) 0 % (0-3) Basophils (%) (Auto) 1 % (0-3) Neutrophils # (Auto) 20.7 x10^3/uL (1.8-7.7) Lymphocytes # (Auto) 1.5 x10^3/uL (1.0-4.8) Monocytes # (Auto) 1.1 x10^3/uL (0.0-1.1) Eosinophils # (Auto) 0.0 x10^3/uL (0.0-0.7) Basophils # (Auto) 0.1 x10^3/uL (0.0-0.2) Segmented Neutrophils % 87 % (35-66) Band Neutrophils % 1 % (0-9) Lymphocytes % 6 % (24-48) Monocytes % 6 % (0-10) Platelet Estimate Adequate (ADEQUATE) Sodium Level 138 mmol/L (136-145) Potassium Level 3.8 mmol/L (3.5-5.1) Chloride Level 99 mmol/L (98-107) Carbon Dioxide Level 29 mmol/L (21-32) Anion Gap 10 (6-14) Blood Urea Nitrogen 11 mg/dL (8-26) Creatinine 0.9 mg/dL (0.7-1.3) Estimated GFR (Cockcroft-Gault) 91.7 BUN/Creatinine Ratio 12 (6-20) Glucose Level 136 mg/dL (70-99) Calcium Level 8.9 mg/dL (8.5-10.1) Total Bilirubin 1.7 mg/dL (0.2-1.0) Aspartate Amino Transf (AST/SGOT) 22 U/L (15-37) Alanine Aminotransferase (ALT/SGPT) 78 U/L (16-63) Alkaline Phosphatase 79 U/L (46-116) Total Protein 7.6 g/dL (6.4-8.2) Albumin 4.2 g/dL (3.4-5.0) Albumin/Globulin Ratio 1.2 (1.0-1.7) Lipase 49 U/L (73-393) Lactic Acid Level 1.1 mmol/L (0.4-2.0) Images Images CT abdomen/pelvis with contrast 04/19/2020 11:43 AM INDICATION: Right lower quadrant abdominal pain COMPARISON: None available TECHNIQUE: Multiple axial CT images of the abdomen and pelvis were obtained after the intravenous administration of 75 mL Omnipaque 300. Coronal and sagi ttal reformats are provided. FINDINGS: Visualized portions of the lung bases are clear. Heart size is within normal limits. No suspicious hepatic masses are identified. Diffuse hepatic steatosis. Spleen, bilateral adrenal glands, and pancreas are normal in appearance. Gallbladder is present without adjacent inflammatory changes. The kidneys enhance symmetrically. There is no suspicious renal mass. There is no hydronephrosis. There are no suspected calculi within the kidneys, ureters or urinary bladder. The abdominal aorta is normal in course and caliber. There are no pathologically enlarged lymph nodes in the abdomen and pelvis. There is no abdominal free fluid. There is no free intraperitoneal air. Appendix is dilated measuring 1.5 cm with adjacent inflammatory changes compatible with acute appendicitis. No periappendiceal abscess or free air. No bowel obstruction. IMPRESSION: 1. Acute appendicitis predominantly involving the appendiceal tip. No perforation or free air. No abscess. 2. Diffuse hepatic steatosis. VTE Prophylaxis Ordered VTE Prophylaxis Devices: No VTE Pharmacological Prophylaxi: Yes Assessment/Plan Assessment/Plan Acute appendicitis Hepatic steatosis Plan: Consults General surgery; patient will likely be taken directly to the OR N.p.o. Pain management, antiemetics as needed We will obtain lipid panel due to hepatic steatosis seen on CT abdomen PPX - Heparin FULL CODE Dispo - inpatient for above Justifications for Admission Other Justification PIPPA THORNTON MD Apr 19, 2020 12:41
[2020-04-19] MEDS ORDERED: MAG HYDROX/ALUMINUM HYD/SIMETH 30 ML ORAL.SUSP PO PRN (12:45)
[2020-04-19] MEDS ORDERED: ACETAMINOPHEN 325 MG TABLET. PO PRN (12:45)
[2020-04-19] MEDS ORDERED: HYDROmorphone 2 MG/ML VIAL IV PRN ×2 (12:45→15:30)
[2020-04-19] MEDS ORDERED: HYDROcodone/APAP 5/325MG 1 TAB TABLET PO PRN ×2 (12:45)
[2020-04-19] MEDS ORDERED: CALCIUM CARBONATE 500 MG TAB.CHEW PO PRN (12:45)
[2020-04-19] MEDS ORDERED: BISACODYL 10 MG SUPP.RECT. PR PRN (12:45)
[2020-04-19] MEDS ORDERED: ZOLPIDEM 5 MG TABLET. PO PRN (12:45)
[2020-04-19] MEDS ORDERED: oxyCODONE/APAP 5/325 1 TAB TABLET PO PRN ×3 (12:45→17:45)
[2020-04-19] MEDS ORDERED: ONDANSETRON PF 4 MG/2 ML VIAL. IVP PRN (12:45)
[2020-04-19] MEDS ORDERED: MAGNESIUM HYDROXIDE 2,400 MG/30 ML ORAL.SUSP. PO PRN (12:45)
--- NOTE | 2020-04-19 12:47 | PDOC2 ---
HENRI FRANCOIS [employer] NE[employer]ER 04/19/20 1247: CONSULT Date of Consult Date of Consult DATE: 04/19/20 TIME: 12:42 Reason for Consult Reason for Consult: appendicitis Referring Physician Referring Physician: ER Identification/Chief Complaint Chief Complaint abdominal pain Source Source: Chart review, Patient History of Present Illness Reason for Visit: Acute onset RLQ pain yesterday, associated vomiting. Pain aggravated by m ovement. No constipation or diarrhea. Some chills. Lying still helps alleviate some pain Past Medical History Past Medical History no pertinent hx Past Surgical History Past Surgical History: No pertinent history Family History Family History: Other (noncontributory to current illness ) Social History Quit (1 month ago) ALCOHOL: occassional Drugs: None Lives: with Family Current Medications Current Medications Current Medications Sodium Chloride 500 ml @ 500 mls/hr 1X ONCE IV Last administered on 04/19/20at 11:33; Start 04/19/20 at 11:15; Stop 04/19/20 at 12:14; Status DC Ketorolac Tromethamine (Toradol 15mg Vial) 15 mg 1X ONCE IVP Last administered on 04/19/20at 11:34; Start 04/19/20 at 11:15; Stop 04/19/20 at 11:16; Status DC Ondansetron HCl (Zofran) 4 mg 1X ONCE IVP Last administered on 04/19/20at 11:32; Start 04/19/20 at 11:15; Stop 04/19/20 at 11:16; Status DC Iohexol (Omnipaque 300 Mg/ml) 75 ml 1X ONCE IV Last administered on 04/19/20at 11:57; Start 04/19/20 at 12:00; Stop 04/19/20 at 12:01; Status DC Info (CONTRAST GIVEN -- Rx MONITORING) 1 each PRN DAILY PRN MC SEE COMMENTS; Start 04/19/20 at 12:00; Stop 04/21/20 at 11:59 Piperacillin Sod/ Tazobactam Sod 3.375 gm/Sodium Chloride 50 ml @ 100 mls/hr 1X ONCE IV Last administered on 04/19/20at 12:31; Start 04/19/20 at 12:30; Stop 04/19/20 at 12:59 Ondansetron HCl (Zofran) 4 mg PRN Q8HRS PRN IV NAUSEA/VOMITING; Start 04/19/20 at 12:30; Stop 04/20/20 at 12:29 Morphine Sulfate (Morphine Sulfate) 4 mg PRN Q2HR PRN IV PAIN; Start 04/19/20 at 12:30; Stop 04/20/20 at 12:29 Sodium Chloride 1,000 ml @ 100 mls/hr Q10H IV ; Start 04/19/20 at 12:30; Stop 04/20/20 at 12:29 Active Scripts Active Ondansetron Odt (Ondansetron) 4 Mg Tab.rapdis 1 Tab PO PRN Q6-8HRS Cipro (Ciprofloxacin Hcl) 500 Mg Tablet 1 Tab PO BID 10 Days Allergies Allergies: Coded Allergies: No Known Drug Allergies (Unverified , 04/19/20) ROS General: No: Chills, Other (fevers ) PSYCHOLOGICAL ROS: No: Anxiety, Depression Eyes: No Blurry vision, No Double vision HEENT: No: Heacaches, Sore Throat Hematological and Lymphatic: No: Bleeding Problems, Blood Clots Respiratory: No: Cough, Shortness of breath Cardiovascular: No Chest Pain, No Palpitations Gastrointestinal: Yes Other (see hpi) Genitourinary: No Dysuria, No Retention Musculoskeletal: No Joint Pain, No Muscle Pain Neurological: No Impaired Coord/balance, No Numbness/Tingling Skin: No Pruritus, No Rash Physical Exam General: Alert, Oriented X3, Cooperative HEENT: Atraumatic, PERRLA Lungs: Clear to auscultation, Normal air movement Heart: Regular rate, Normal S1, Normal S2 Abdomen: Soft, Other (RLQ TTP) Extremities: No clubbing, No cyanosis Skin: No rashes, No breakdown Neuro: Normal gait, Normal speech Psych/Mental Status: Mental status NL, Mood NL MUSCULOSKELETAL: No deformity, No swelling Vitals VITALS Vital Signs Date Time Temp Pulse Resp B/P (MAP) Pulse Ox O2 Delivery O2 Flow Rate FiO2 04/19/20 11:17 98.8 92 16 120/72 (88) 98 Room Air 98.8 Labs Labs Laboratory Tests Test 04/19/20 11:15 04/19/20 11:18 04/19/20 11:35 Urine Collection Type Unknown Urine Color Yellow Urine Clarity Clear Urine pH 6.0 (<5.0-8.0) Urine Specific [place] 1.020 (1.000-1.030) Urine Protein Negative mg/dL (NEG-TRACE) Urine Glucose (UA) Negative mg/dL (NEG) Urine Ketones (Stick) Negative mg/dL (NEG) Urine Blood Negative (NEG) Urine Nitrite Negative (NEG) Urine Bilirubin Negative (NEG) Urine Urobilinogen Dipstick 0.2 mg/dL (0.2 mg/dL) Urine Leukocyte Esterase Negative (NEG) Urine RBC 0 /HPF (0-2) Urine WBC 0 /HPF (0-4) Urine Squamous Epithelial Cells Few /LPF Urine Bacteria 0 /HPF (0-FEW) White Blood Count 23.5 x10^3/uL (4.0-11.0) Red Blood Count 5.11 x10^6/uL (4.30-5.70) Hemoglobin 16.0 g/dL (13.0-17.5) Hematocrit 46.8 % (39.0-53.0) Mean Corpuscular Volume 92 fL (79-100) Mean Corpuscular Hemoglobin 31 pg (25-35) Mean Corpuscular Hemoglobin Concent 34 g/dL (31-37) Red Cell Distribution Width 13.0 % (11.5-14.5) Platelet Count 258 x10^3/uL (140-400) Neutrophils (%) (Auto) 88 % (31-73) Lymphocytes (%) (Auto) 7 % (24-48) Monocytes (%) (Auto) 5 % (0-9) Eosinophils (%) (Auto) 0 % (0-3) Basophils (%) (Auto) 1 % (0-3) Neutrophils # (Auto) 20.7 x10^3/uL (1.8-7.7) Lymphocytes # (Auto) 1.5 x10^3/uL (1.0-4.8) Monocytes # (Auto) 1.1 x10^3/uL (0.0-1.1) Eosinophils # (Auto) 0.0 x10^3/uL (0.0-0.7) Basophils # (Auto) 0.1 x10^3/uL (0.0-0.2) Segmented Neutrophils % 87 % (35-66) Band Neutrophils % 1 % (0-9) Lymphocytes % 6 % (24-48) Monocytes % 6 % (0-10) Platelet Estimate Adequate (ADEQUATE) Sodium Level 138 mmol/L (136-145) Potassium Level 3.8 mmol/L (3.5-5.1) Chloride Level 99 mmol/L (98-107) Carbon Dioxide Level 29 mmol/L (21-32) Anion Gap 10 (6-14) Blood Urea Nitrogen 11 mg/dL (8-26) Creatinine 0.9 mg/dL (0.7-1.3) Estimated GFR (Cockcroft-Gault) 91.7 BUN/Creatinine Ratio 12 (6-20) Glucose Level 136 mg/dL (70-99) Calcium Level 8.9 mg/dL (8.5-10.1) Total Bilirubin 1.7 mg/dL (0.2-1.0) Aspartate Amino Transf (AST/SGOT) 22 U/L (15-37) Alanine Aminotransferase (ALT/SGPT) 78 U/L (16-63) Alkaline Phosphatase 79 U/L (46-116) Total Protein 7.6 g/dL (6.4-8.2) Albumin 4.2 g/dL (3.4-5.0) Albumin/Globulin Ratio 1.2 (1.0-1.7) Lipase 49 U/L (73-393) Lactic Acid Level 1.1 mmol/L (0.4-2.0) Laboratory Tests Test 04/19/20 11:15 04/19/20 11:18 04/19/20 11:35 Urine Collection Type Unknown Urine Color Yellow Urine Clarity Clear Urine pH 6.0 (<5.0-8.0) Urine Specific [place] 1.020 (1.000-1.030) Urine Protein Negative mg/dL (NEG-TRACE) Urine Glucose (UA) Negative mg/dL (NEG) Urine Ketones (Stick) Negative mg/dL (NEG) Urine Blood Negative (NEG) Urine Nitrite Negative (NEG) Urine Bilirubin Negative (NEG) Urine Urobilinogen Dipstick 0.2 mg/dL (0.2 mg/dL) Urine Leukocyte Esterase Negative (NEG) Urine RBC 0 /HPF (0-2) Urine WBC 0 /HPF (0-4) Urine Squamous Epithelial Cells Few /LPF Urine Bacteria 0 /HPF (0-FEW) White Blood Count 23.5 x10^3/uL (4.0-11.0) Red Blood Count 5.11 x10^6/uL (4.30-5.70) Hemoglobin 16.0 g/dL (13.0-17.5) Hematocrit 46.8 % (39.0-53.0) Mean Corpuscular Volume 92 fL (79-100) Mean Corpuscular Hemoglobin 31 pg (25-35) Mean Corpuscular Hemoglobin Concent 34 g/dL (31-37) Red Cell Distribution Width 13.0 % (11.5-14.5) Platelet Count 258 x10^3/uL (140-400) Neutrophils (%) (Auto) 88 % (31-73) Lymphocytes (%) (Auto) 7 % (24-48) Monocytes (%) (Auto) 5 % (0-9) Eosinophils (%) (Auto) 0 % (0-3) Basophils (%) (Auto) 1 % (0-3) Neutrophils # (Auto) 20.7 x10^3/uL (1.8-7.7) Lymphocytes # (Auto) 1.5 x10^3/uL (1.0-4.8) Monocytes # (Auto) 1.1 x10^3/uL (0.0-1.1) Eosinophils # (Auto) 0.0 x10^3/uL (0.0-0.7) Basophils # (Auto) 0.1 x10^3/uL (0.0-0.2) Segmented Neutrophils % 87 % (35-66) Band Neutrophils % 1 % (0-9) Lymphocytes % 6 % (24-48) Monocytes % 6 % (0-10) Platelet Estimate Adequate (ADEQUATE) Sodium Level 138 mmol/L (136-145) Potassium Level 3.8 mmol/L (3.5-5.1) Chloride Level 99 mmol/L (98-107) Carbon Dioxide Level 29 mmol/L (21-32) Anion Gap 10 (6-14) Blood Urea Nitrogen 11 mg/dL (8-26) Creatinine 0.9 mg/dL (0.7-1.3) Estimated GFR (Cockcroft-Gault) 91.7 BUN/Creatinine Ratio 12 (6-20) Glucose Level 136 mg/dL (70-99) Calcium Level 8.9 mg/dL (8.5-10.1) Total Bilirubin 1.7 mg/dL (0.2-1.0) Aspartate Amino Transf (AST/SGOT) 22 U/L (15-37) Alanine Aminotransferase (ALT/SGPT) 78 U/L (16-63) Alkaline Phosphatase 79 U/L (46-116) Total Protein 7.6 g/dL (6.4-8.2) Albumin 4.2 g/dL (3.4-5.0) Albumin/Globulin Ratio 1.2 (1.0-1.7) Lipase 49 U/L (73-393) Lactic Acid Level 1.1 mmol/L (0.4-2.0) Assessment/Plan Assessment/Plan acute appendicitis plan lap appy today RAMIRO FERNÁNDEZ MD 04/19/20 1636: CONSULT Assessment/Plan Assessment/Plan The patient is a 44 year old male who reported to the ER with abdominal pain. The pain began yesterday and has localized to the R lower abdomen. He has associated nausea and vomiting. PMH/PSH/ROS/SH as above; exam: alert, oriented, no neck masses, no icterus, lungs clear, heart RR and R, abdomen soft, tender with guarding in the RLQ, ext neg for edema. Labs and Xrays reviewed; A/P) Suspect appendicitis, plan for lap appy. The details and risks of surgery were discussed. He understands and would like to proceed. HENRI FRANCOIS APRN Apr 19, 2020 12:47 RAMIRO FERNÁNDEZ MD Apr 19, 2020 16:36
[2020-04-19] MEDS ORDERED: BUPIVACAINE-EPI 0.5%-1:200000 MPF 30 ML VIAL. INJ ONE (13:00)
[2020-04-19] MEDS: HEPARIN for SUB-Q USE 5,000 UNIT/ML VIAL. SQ SCH ×2 (14:00→21:38)
[2020-04-19] MEDS ORDERED: ONDANSETRON PF 4 MG/2 ML VIAL. ONE (15:05)
[2020-04-19] MEDS ORDERED: SEVOFLURANE 31 TO 60 MINUTES. IH ONE (15:05)
[2020-04-19] MEDS ORDERED: PROPOFOL 10 MG/ML (20ML) VIAL. IV ONE (15:05)
[2020-04-19] MEDS ORDERED: DEXAMETHASONE SOD PHOS 4 MG/ML VIAL ONE (15:05)
[2020-04-19] MEDS ORDERED: LIDOCAINE 2% PF 5 ML VIAL. ONE (15:05)
[2020-04-19] MEDS ORDERED: ROCURONIUM 50 MG/5 ML VIAL. ONE (15:05)
[2020-04-19] MEDS ORDERED: MORPHINE SULFATE 2 MG/ML VIAL. IV PRN (15:30)
[2020-04-19] MEDS ORDERED: fentaNYL PF VIAL 100 MCG/2 ML VIAL IV PRN ×2 (15:30)
[2020-04-19] MEDS ORDERED: IV RINGERS,LACTATED 1000ML 1,000 ML IV SCH (15:30)
[2020-04-19] MEDS ORDERED: PROCHLORPERAZINE 10 MG/2 ML VIAL. IV PRN (15:30)
[2020-04-19] MEDS ORDERED: SUCCINYLCHOLINE 200 MG/10 ML VIAL. ONE (16:40)
[2020-04-19] MEDS ORDERED: fentaNYL PF VIAL 100 MCG/2 ML VIAL ONE ×2 (16:45→17:25)
[2020-04-19] MEDS ORDERED: NEOSTIGMINE METHYLSULFATE 5 MG/5 ML SYRINGE. ONE (16:54)
[2020-04-19] MEDS ORDERED: SEVOFLURANE 61 TO 120 MINUTES. IH ONE (16:54)
[2020-04-19] MEDS ORDERED: GLYCOPYRROLATE 1 MG/5 ML VIAL. ONE (16:54)
[2020-04-19] MEDS ORDERED: KETOROLAC 30 MG/ML VIAL. ONE (16:54)
--- NOTE | 2020-04-19 17:31 | PDOC4 ---
Operative Note Operative Note Preoperative Diagnosis: Acute Appendicitis Postoperative Diagnosis: Same Procedure: Laparoscopic appendectomy Surgeon: Adelso Anesthesia: Gen. EBL: 10 mL Specimen: Appendix to pathology Drains: None Complications: None Indication: The patient is a 44-year-old male who reported to the emergency department with abdominal pain. The evaluation is consistent with acute appendicitis. The patient was offered surgical treatment with a laparoscopic appendectomy. The risks of surgery were discussed which include bleeding, infection, visceral injury, pain, anesthetic risk, potential need for additional surgery or procedure. The patient understands and would like to proceed. Description: The patient was taken to the operating room and placed supine on the operating table. Gen. anesthesia was performed. The abdomen was prepped with ChloraPrep and draped in a standard surgical manner. A supraumbilical incision was made through which a veress needle was inserted and a pneumoperitoneum was created. A visualized 5 mm trocar was inserted and the laparoscope was introd uced. In the left lower quadrant a 5 mm trocar was inserted. In the suprapubic region a 12 mm trocar was inserted. The appendix was identified and appeared inflamed consistent with acute appendicitis. There was no clear evidence of perforation or periappendiceal abscess. The mesoappendix was bluntly from the appendix. The mesoappendix was controlled using several clips and it was divided. The appendix was then amputated off the cecum using an Endo DONN 45 stapling device. The appendix was then placed in an endoscopic bag and extracted at the suprapubic incision site. The fascia there was closed with 0 Vicryl and infiltrated with half percent Marcaine with epinephrine. The RLQ was visualized and the staple line appeared well intact and hemostasis was good. No other abnormalities were identified grossly. The remaining ports were removed and the pneumoperitoneum was relieved. The skin at all incision sites was closed with 4- 0 Monocryl. Steri-Strips and dressings were applied. The patient tolerated the procedure well and was sent to the recovery room in stable condition. At the end of the case all counts were correct. RAMIRO FERNÁNDEZ MD Apr 19, 2020 17:31
--- NOTE | 2020-04-19 19:45 | NUR ---
Pt. arrived on unit around 1939 by bed from post-op. Pt. is alert at this time and does not complain of any pain but would like to have something to drink. Call light is within reach with bed in lowest position and locked. Will continue to monitor.
[2020-04-19] MEDS: MORPHINE SULFATE 2 MG/ML VIAL. IV PRN (21:35)
[2020-04-19] MEDS: DOCUSATE SODIUM 100 MG CAPSULE. PO SCH (21:38)
[2020-04-20 03:11] VITALS: BP 108/61
[2020-04-20] MEDS: HEPARIN for SUB-Q USE 5,000 UNIT/ML VIAL. SQ SCH (06:25)
[2020-04-20 07:00] VITALS: BP 120/65
--- NOTE | 2020-04-20 09:28 | NUR ---
SW following. Discussed with RN, pt from home with girlfriend, room air, GI soft, rapid COVID negative. Pt had surgery 04/19/2020. RN advised no SW needs at this time and anticipates pt will discharge home today with self care. SW will continue to follow.
[2020-04-20 09:39] LABS: BASO % 0 % (0-3); EOS % 0 % (0-3); LYMPH # 1.6 x10^3/uL (1.0-4.8); LYMPH % 10 % (24-48); MEAN CORPUSCULAR HEMOGLOBIN 32 pg (25-35); MEAN CORPUSCULAR HGB CONC 34 g/dL (31-37); MEAN CORPUSCULAR VOLUME 93 fL (79-100); MONO # 0.5 x10^3/uL (0.0-1.1); MONO % 3 % (0-9); NEUT # 13.4 x10^3/uL (1.8-7.7); NEUT % 86 % (31-73); PLATELET COUNT 207 x10^3/uL (140-400); RED BLOOD COUNT 4.43 x10^6/uL (4.30-5.70); RED CELL DISTRIBUTION WIDTH 13.1 % (11.5-14.5); WHITE BLOOD COUNT 15.6 x10^3/uL (4.0-11.0)
[2020-04-20 09:54] LABS: CALCIUM 8.6 mg/dL (8.5-10.1); CREATININE 1.2 mg/dL (0.7-1.3); GFR 65.8; POTASSIUM 4.3 mmol/L (3.5-5.1)
[2020-04-20] MEDS ORDERED: HYDR-2761 PO (09:55)
[2020-04-20] MEDS ORDERED: IBUP-1060 PO (09:55)
[2020-04-20] MEDS ORDERED: DOCU-153 PO (09:55)
[2020-04-20] MEDS: MORPHINE SULFATE 2 MG/ML VIAL. IV PRN (09:58)
[2020-04-20 10:00] LABS: CHOLESTEROL/HDL RATIO 3.5
--- NOTE | 2020-04-20 10:01 | PDOC ---
HENRI FRANCOIS FINANCIAL REPORTING ANALYST 04/20/20 1001: SURGICAL PROGRESS NOTE DATE: 04/20/20 TIME: 09:57 Subjective pain improved from preop + flatus tolerating diet Vital Signs Vital Signs Date Time Temp Pulse Resp B/P (MAP) Pulse Ox O2 Delivery O2 Flow Rate FiO2 04/20/20 07:00 98.7 99 18 120/65 (83) 100 Room Air 98.7 04/19/20 17:53 8 I&O Intake and Output 04/20/20 07:00 Intake Total 1980 ml Output Total 660 ml Balance 1320 ml Intake Oral 480 ml IV Total 1500 ml Output Urine Total 650 ml Estimated Blood Loss 10 ml General: Alert, Oriented X3, Cooperative Abdomen: Soft, Other (lap dressings dry) Labs Laboratory Tests Test 04/19/20 11:15 04/19/20 11:18 04/19/20 11:35 04/19/20 12:22 Urine Collection Type Unknown Urine Color Yellow Urine Clarity Clear Urine pH 6.0 (<5.0-8.0) Urine Specific [place] 1.020 (1.000-1.030) Urine Protein Negative mg/dL (NEG-TRACE) Urine Glucose (UA) Negative mg/dL (NEG) Urine Ketones (Stick) Negative mg/dL (NEG) Urine Blood Negative (NEG) Urine Nitrite Negative (NEG) Urine Bilirubin Negative (NEG) Urine Urobilinogen Dipstick 0.2 mg/dL (0.2 mg/dL) Urine Leukocyte Esterase Negative (NEG) Urine RBC 0 /HPF (0-2) Urine WBC 0 /HPF (0-4) Urine Squamous Epithelial Cells Few /LPF Urine Bacteria 0 /HPF (0-FEW) White Blood Count 23.5 x10^3/uL (4.0-11.0) Red Blood Count 5.11 x10^6/uL (4.30-5.70) Hemoglobin 16.0 g/dL (13.0-17.5) Hematocrit 46.8 % (39.0-53.0) Mean Corpuscular Volume 92 fL (79-100) Mean Corpuscular Hemoglobin 31 pg (25-35) Mean Corpuscular Hemoglobin Concent 34 g/dL (31-37) Red Cell Distribution Width 13.0 % (11.5-14.5) Platelet Count 258 x10^3/uL (140-400) Neutrophils (%) (Auto) 88 % (31-73) Lymphocytes (%) (Auto) 7 % (24-48) Monocytes (%) (Auto) 5 % (0-9) Eosinophils (%) (Auto) 0 % (0-3) Basophils (%) (Auto) 1 % (0-3) Neutrophils # (Auto) 20.7 x10^3/uL (1.8-7.7) Lymphocytes # (Auto) 1.5 x10^3/uL (1.0-4.8) Monocytes # (Auto) 1.1 x10^3/uL (0.0-1.1) Eosinophils # (Auto) 0.0 x10^3/uL (0.0-0.7) Basophils # (Auto) 0.1 x10^3/uL (0.0-0.2) Segmented Neutrophils % 87 % (35-66) Band Neutrophils % 1 % (0-9) Lymphocytes % 6 % (24-48) Monocytes % 6 % (0-10) Platelet Estimate Adequate (ADEQUATE) Sodium Level 138 mmol/L (136-145) Potassium Level 3.8 mmol/L (3.5-5.1) Chloride Level 99 mmol/L (98-107) Carbon Dioxide Level 29 mmol/L (21-32) Anion Gap 10 (6-14) Blood Urea Nitrogen 11 mg/dL (8-26) Creatinine 0.9 mg/dL (0.7-1.3) Estimated GFR (Cockcroft-Gault) 91.7 BUN/Creatinine Ratio 12 (6-20) Glucose Level 136 mg/dL (70-99) Calcium Level 8.9 mg/dL (8.5-10.1) Total Bilirubin 1.7 mg/dL (0.2-1.0) Aspartate Amino Transf (AST/SGOT) 22 U/L (15-37) Alanine Aminotransferase (ALT/SGPT) 78 U/L (16-63) Alkaline Phosphatase 79 U/L (46-116) Total Protein 7.6 g/dL (6.4-8.2) Albumin 4.2 g/dL (3.4-5.0) Albumin/Globulin Ratio 1.2 (1.0-1.7) Lipase 49 U/L (73-393) Lactic Acid Level 1.1 mmol/L (0.4-2.0) SARS-CoV-2 Antigen (Rapid) Negative (NEGATIVE) Test 04/20/20 09:11 White Blood Count 15.6 x10^3/uL (4.0-11.0) Red Blood Count 4.43 x10^6/uL (4.30-5.70) Hemoglobin 14.0 g/dL (13.0-17.5) Hematocrit 41.0 % (39.0-53.0) Mean Corpuscular Volume 93 fL (79-100) Mean Corpuscular Hemoglobin 32 pg (25-35) Mean Corpuscular Hemoglobin Concent 34 g/dL (31-37) Red Cell Distribution Width 13.1 % (11.5-14.5) Platelet Count 207 x10^3/uL (140-400) Neutrophils (%) (Auto) 86 % (31-73) Lymphocytes (%) (Auto) 10 % (24-48) Monocytes (%) (Auto) 3 % (0-9) Eosinophils (%) (Auto) 0 % (0-3) Basophils (%) (Auto) 0 % (0-3) Neutrophils # (Auto) 13.4 x10^3/uL (1.8-7.7) Lymphocytes # (Auto) 1.6 x10^3/uL (1.0-4.8) Monocytes # (Auto) 0.5 x10^3/uL (0.0-1.1) Eosinophils # (Auto) 0.0 x10^3/uL (0.0-0.7) Basophils # (Auto) 0.0 x10^3/uL (0.0-0.2) Sodium Level 141 mmol/L (136-145) Potassium Level 4.3 mmol/L (3.5-5.1) Chloride Level 103 mmol/L (98-107) Carbon Dioxide Level 29 mmol/L (21-32) Anion Gap 9 (6-14) Blood Urea Nitrogen 14 mg/dL (8-26) Creatinine 1.2 mg/dL (0.7-1.3) Estimated GFR (Cockcroft-Gault) 65.8 Glucose Level 221 mg/dL (70-99) Calcium Level 8.6 mg/dL (8.5-10.1) Laboratory Tests Test 04/19/20 11:15 04/19/20 11:18 04/19/20 11:35 04/19/20 12:22 Urine Collection Type Unknown Urine Color Yellow Urine Clarity Clear Urine pH 6.0 (<5.0-8.0) Urine Specific [place] 1.020 (1.000-1.030) Urine Protein Negative mg/dL (NEG-TRACE) Urine Glucose (UA) Negative mg/dL (NEG) Urine Ketones (Stick) Negative mg/dL (NEG) Urine Blood Negative (NEG) Urine Nitrite Negative (NEG) Urine Bilirubin Negative (NEG) Urine Urobilinogen Dipstick 0.2 mg/dL (0.2 mg/dL) Urine Leukocyte Esterase Negative (NEG) Urine RBC 0 /HPF (0-2) Urine WBC 0 /HPF (0-4) Urine Squamous Epithelial Cells Few /LPF Urine Bacteria 0 /HPF (0-FEW) White Blood Count 23.5 x10^3/uL (4.0-11.0) Red Blood Count 5.11 x10^6/uL (4.30-5.70) Hemoglobin 16.0 g/dL (13.0-17.5) Hematocrit 46.8 % (39.0-53.0) Mean Corpuscular Volume 92 fL (79-100) Mean Corpuscular Hemoglobin 31 pg (25-35) Mean Corpuscular Hemoglobin Concent 34 g/dL (31-37) Red Cell Distribution Width 13.0 % (11.5-14.5) Platelet Count 258 x10^3/uL (140-400) Neutrophils (%) (Auto) 88 % (31-73) Lymphocytes (%) (Auto) 7 % (24-48) Monocytes (%) (Auto) 5 % (0-9) Eosinophils (%) (Auto) 0 % (0-3) Basophils (%) (Auto) 1 % (0-3) Neutrophils # (Auto) 20.7 x10^3/uL (1.8-7.7) Lymphocytes # (Auto) 1.5 x10^3/uL (1.0-4.8) Monocytes # (Auto) 1.1 x10^3/uL (0.0-1.1) Eosinophils # (Auto) 0.0 x10^3/uL (0.0-0.7) Basophils # (Auto) 0.1 x10^3/uL (0.0-0.2) Segmented Neutrophils % 87 % (35-66) Band Neutrophils % 1 % (0-9) Lymphocytes % 6 % (24-48) Monocytes % 6 % (0-10) Platelet Estimate Adequate (ADEQUATE) Sodium Level 138 mmol/L (136-145) Potassium Level 3.8 mmol/L (3.5-5.1) Chloride Level 99 mmol/L (98-107) Carbon Dioxide Level 29 mmol/L (21-32) Anion Gap 10 (6-14) Blood Urea Nitrogen 11 mg/dL (8-26) Creatinine 0.9 mg/dL (0.7-1.3) Estimated GFR (Cockcroft-Gault) 91.7 BUN/Creatinine Ratio 12 (6-20) Glucose Level 136 mg/dL (70-99) Calcium Level 8.9 mg/dL (8.5-10.1) Total Bilirubin 1.7 mg/dL (0.2-1.0) Aspartate Amino Transf (AST/SGOT) 22 U/L (15-37) Alanine Aminotransferase (ALT/SGPT) 78 U/L (16-63) Alkaline Phosphatase 79 U/L (46-116) Total Protein 7.6 g/dL (6.4-8.2) Albumin 4.2 g/dL (3.4-5.0) Albumin/Globulin Ratio 1.2 (1.0-1.7) Lipase 49 U/L (73-393) Lactic Acid Level 1.1 mmol/L (0.4-2.0) SARS-CoV-2 Antigen (Rapid) Negative (NEGATIVE) Test 04/20/20 09:11 White Blood Count 15.6 x10^3/uL (4.0-11.0) Red Blood Count 4.43 x10^6/uL (4.30-5.70) Hemoglobin 14.0 g/dL (13.0-17.5) Hematocrit 41.0 % (39.0-53.0) Mean Corpuscular Volume 93 fL (79-100) Mean Corpuscular Hemoglobin 32 pg (25-35) Mean Corpuscular Hemoglobin Concent 34 g/dL (31-37) Red Cell Distribution Width 13.1 % (11.5-14.5) Platelet Count 207 x10^3/uL (140-400) Neutrophils (%) (Auto) 86 % (31-73) Lymphocytes (%) (Auto) 10 % (24-48) Monocytes (%) (Auto) 3 % (0-9) Eosinophils (%) (Auto) 0 % (0-3) Basophils (%) (Auto) 0 % (0-3) Neutrophils # (Auto) 13.4 x10^3/uL (1.8-7.7) Lymphocytes # (Auto) 1.6 x10^3/uL (1.0-4.8) Monocytes # (Auto) 0.5 x10^3/uL (0.0-1.1) Eosinophils # (Auto) 0.0 x10^3/uL (0.0-0.7) Basophils # (Auto) 0.0 x10^3/uL (0.0-0.2) Sodium Level 141 mmol/L (136-145) Potassium Level 4.3 mmol/L (3.5-5.1) Chloride Level 103 mmol/L (98-107) Carbon Dioxide Level 29 mmol/L (21-32) Anion Gap 9 (6-14) Blood Urea Nitrogen 14 mg/dL (8-26) Creatinine 1.2 mg/dL (0.7-1.3) Estimated GFR (Cockcroft-Gault) 65.8 Glucose Level 221 mg/dL (70-99) Calcium Level 8.6 mg/dL (8.5-10.1) Assessment/Plan s/p appy low grade temps overnight--none this AM WBC down ok to dc from surgical pov FU 2 weeks Justicifation of Admission Dx: Justifications for Admission: Justification of Admission Dx: N/A RAMIRO FERNÁNDEZ MD 04/20/20 1029: SURGICAL PROGRESS NOTE Assessment/Plan Agree with above HENRI FRANCOIS FINANCIAL REPORTING ANALYST Apr 20, 2020 10:01 RAMIRO FERNÁNDEZ MD Apr 20, 2020 10:29
[2020-04-20 11:00] VITALS: BP 118/66
--- NOTE | 2020-04-20 11:37 | PDOC3 ---
Discharge Summary Visit Information Date of Admission: Apr 19, 2020 Date of Discharge: Apr 20, 2020 Final Diagnosis acute appendicitis, sepsis Brief Hospital Course Allergies Allergies Coded Allergies Type Severity Reaction Last Updated Verified No Known Drug Allergies 04/19/20 No Vital Signs Vital Signs Date Time Temp Pulse Resp B/P (MAP) Pulse Ox O2 Delivery O2 Flow Rate FiO2 04/20/20 11:00 98.3 86 16 118/66 (83) 99 Room Air 98.3 04/19/20 17:53 8 Lab Results Laboratory Tests Test 04/19/20 11:15 04/19/20 11:18 04/19/20 11:35 04/19/20 12:22 Urine Collection Type Unknown Urine Color Yellow Urine Clarity Clear Urine pH 6.0 (<5.0-8.0) Urine Specific [place] 1.020 (1.000-1.030) Urine Protein Negative mg/dL (NEG-TRACE) Urine Glucose (UA) Negative mg/dL (NEG) Urine Ketones (Stick) Negative mg/dL (NEG) Urine Blood Negative (NEG) Urine Nitrite Negative (NEG) Urine Bilirubin Negative (NEG) Urine Urobilinogen Dipstick 0.2 mg/dL (0.2 mg/dL) Urine Leukocyte Esterase Negative (NEG) Urine RBC 0 /HPF (0-2) Urine WBC 0 /HPF (0-4) Urine Squamous Epithelial Cells Few /LPF Urine Bacteria 0 /HPF (0-FEW) White Blood Count 23.5 x10^3/uL (4.0-11.0) Red Blood Count 5.11 x10^6/uL (4.30-5.70) Hemoglobin 16.0 g/dL (13.0-17.5) Hematocrit 46.8 % (39.0-53.0) Mean Corpuscular Volume 92 fL (79-100) Mean Corpuscular Hemoglobin 31 pg (25-35) Mean Corpuscular Hemoglobin Concent 34 g/dL (31-37) Red Cell Distribution Width 13.0 % (11.5-14.5) Platelet Count 258 x10^3/uL (140-400) Neutrophils (%) (Auto) 88 % (31-73) Lymphocytes (%) (Auto) 7 % (24-48) Monocytes (%) (Auto) 5 % (0-9) Eosinophils (%) (Auto) 0 % (0-3) Basophils (%) (Auto) 1 % (0-3) Neutrophils # (Auto) 20.7 x10^3/uL (1.8-7.7) Lymphocytes # (Auto) 1.5 x10^3/uL (1.0-4.8) Monocytes # (Auto) 1.1 x10^3/uL (0.0-1.1) Eosinophils # (Auto) 0.0 x10^3/uL (0.0-0.7) Basophils # (Auto) 0.1 x10^3/uL (0.0-0.2) Segmented Neutrophils % 87 % (35-66) Band Neutrophils % 1 % (0-9) Lymphocytes % 6 % (24-48) Monocytes % 6 % (0-10) Platelet Estimate Adequate (ADEQUATE) Sodium Level 138 mmol/L (136-145) Potassium Level 3.8 mmol/L (3.5-5.1) Chloride Level 99 mmol/L (98-107) Carbon Dioxide Level 29 mmol/L (21-32) Anion Gap 10 (6-14) Blood Urea Nitrogen 11 mg/dL (8-26) Creatinine 0.9 mg/dL (0.7-1.3) Estimated GFR (Cockcroft-Gault) 91.7 BUN/Creatinine Ratio 12 (6-20) Glucose Level 136 mg/dL (70-99) Calcium Level 8.9 mg/dL (8.5-10.1) Total Bilirubin 1.7 mg/dL (0.2-1.0) Aspartate Amino Transf (AST/SGOT) 22 U/L (15-37) Alanine Aminotransferase (ALT/SGPT) 78 U/L (16-63) Alkaline Phosphatase 79 U/L (46-116) Total Protein 7.6 g/dL (6.4-8.2) Albumin 4.2 g/dL (3.4-5.0) Albumin/Globulin Ratio 1.2 (1.0-1.7) Lipase 49 U/L (73-393) Lactic Acid Level 1.1 mmol/L (0.4-2.0) SARS-CoV-2 Antigen (Rapid) Negative (NEGATIVE) Test 04/20/20 09:11 White Blood Count 15.6 x10^3/uL (4.0-11.0) Red Blood Count 4.43 x10^6/uL (4.30-5.70) Hemoglobin 14.0 g/dL (13.0-17.5) Hematocrit 41.0 % (39.0-53.0) Mean Corpuscular Volume 93 fL (79-100) Mean Corpuscular Hemoglobin 32 pg (25-35) Mean Corpuscular Hemoglobin Concent 34 g/dL (31-37) Red Cell Distribution Width 13.1 % (11.5-14.5) Platelet Count 207 x10^3/uL (140-400) Neutrophils (%) (Auto) 86 % (31-73) Lymphocytes (%) (Auto) 10 % (24-48) Monocytes (%) (Auto) 3 % (0-9) Eosinophils (%) (Auto) 0 % (0-3) Basophils (%) (Auto) 0 % (0-3) Neutrophils # (Auto) 13.4 x10^3/uL (1.8-7.7) Lymphocytes # (Auto) 1.6 x10^3/uL (1.0-4.8) Monocytes # (Auto) 0.5 x10^3/uL (0.0-1.1) Eosinophils # (Auto) 0.0 x10^3/uL (0.0-0.7) Basophils # (Auto) 0.0 x10^3/uL (0.0-0.2) Sodium Level 141 mmol/L (136-145) Potassium Level 4.3 mmol/L (3.5-5.1) Chloride Level 103 mmol/L (98-107) Carbon Dioxide Level 29 mmol/L (21-32) Anion Gap 9 (6-14) Blood Urea Nitrogen 14 mg/dL (8-26) Creatinine 1.2 mg/dL (0.7-1.3) Estimated GFR (Cockcroft-Gault) 65.8 Glucose Level 221 mg/dL (70-99) Calcium Level 8.6 mg/dL (8.5-10.1) Triglycerides Level 55 mg/dL (0-150) Cholesterol Level 153 mg/dL (0-200) LDL Cholesterol, Calculated 98 mg/dL (0-100) VLDL Cholesterol, Calculated 11 mg/dL (0-40) Non-HDL Cholesterol Calculated 109 mg/dL (0-129) HDL Cholesterol 44 mg/dL (40-60) Cholesterol/HDL Ratio 3.5 Laboratory Tests Test 04/19/20 12:22 04/20/20 09:11 SARS-CoV-2 Antigen (Rapid) Negative (NEGATIVE) White Blood Count 15.6 x10^3/uL (4.0-11.0) Red Blood Count 4.43 x10^6/uL (4.30-5.70) Hemoglobin 14.0 g/dL (13.0-17.5) Hematocrit 41.0 % (39.0-53.0) Mean Corpuscular Volume 93 fL (79-100) Mean Corpuscular Hemoglobin 32 pg (25-35) Mean Corpuscular Hemoglobin Concent 34 g/dL (31-37) Red Cell Distribution Width 13.1 % (11.5-14.5) Platelet Count 207 x10^3/uL (140-400) Neutrophils (%) (Auto) 86 % (31-73) Lymphocytes (%) (Auto) 10 % (24-48) Monocytes (%) (Auto) 3 % (0-9) Eosinophils (%) (Auto) 0 % (0-3) Basophils (%) (Auto) 0 % (0-3) Neutrophils # (Auto) 13.4 x10^3/uL (1.8-7.7) Lymphocytes # (Auto) 1.6 x10^3/uL (1.0-4.8) Monocytes # (Auto) 0.5 x10^3/uL (0.0-1.1) Eosinophils # (Auto) 0.0 x10^3/uL (0.0-0.7) Basophils # (Auto) 0.0 x10^3/uL (0.0-0.2) Sodium Level 141 mmol/L (136-145) Potassium Level 4.3 mmol/L (3.5-5.1) Chloride Level 103 mmol/L (98-107) Carbon Dioxide Level 29 mmol/L (21-32) Anion Gap 9 (6-14) Blood Urea Nitrogen 14 mg/dL (8-26) Creatinine 1.2 mg/dL (0.7-1.3) Estimated GFR (Cockcroft-Gault) 65.8 Glucose Level 221 mg/dL (70-99) Calcium Level 8.6 mg/dL (8.5-10.1) Triglycerides Level 55 mg/dL (0-150) Cholesterol Level 153 mg/dL (0-200) LDL Cholesterol, Calculated 98 mg/dL (0-100) VLDL Cholesterol, Calculated 11 mg/dL (0-40) Non-HDL Cholesterol Calculated 109 mg/dL (0-129) HDL Cholesterol 44 mg/dL (40-60) Cholesterol/HDL Ratio 3.5 Brief Hospital Course Mr. Grullon is a 44 old acute abd pain acute appendicitis s[facility] Discharge Information Condition at Discharge: Improved Follow Up: Weeks Disposition/Orders: D/C to Home Scheduled Info (No Known Medications Prior To Admisstion) Each, 1 EACH 1 for no, (Reported) Entered as Reported by: ABDI SANCHEZ on 04/20/20527 Last Action: New Order on 04/20/20527 by ABDI SANCHEZ Scheduled PRN Docusate Sodium (Dok) 100 Mg Capsule, 100 MG PO BID PRN for CONSTIPATION, #30 Prescribed by: KWAME GURROLA on 04/20/20 0955 Ibuprofen (Ibuprofen) 800 Mg Tablet, 800 MG PO PRN BID PRN for INFLAMMATION, #20 Prescribed by: KWAME GURROLA on 04/20/20 0955 Oxycodone/Apap 5-325 (Percocet 5-325 Mg Tablet ) 1 Each Tablet, 1 TAB PO PRN Q4HRS PRN for PAIN, #16 Prescribed by: KWAME GURROLA on 04/20/20 1139 Discontinued Medications Ciprofloxacin Hcl (Cipro) 500 Mg Tablet, 1 TAB PO BID for 10 Days, #20 Ref 0 Prescribed by: SLOANE AGUIRRE D.O. on 11/22/19 1208 Ondansetron (Ondansetron Odt) 4 Mg Tab.rapdis, 1 TAB PO PRN Q6-8HRS, #16 Prescribed by: JAMES JAIN DO on 11/26/19 1521 Patient Instructions Patient Instructions > 35 min faceto face x2 paperwork for return to work filled out off 2 weeks Justicifation of Admission Dx: Justifications for Admission: Justification of Admission Dx: N/A KWAME GURROLA MD Apr 20, 2020 11:37
[2020-04-20] MEDS ORDERED: OXYC1TAB15 PO (11:38)
[2020-04-20] MEDS ORDERED: AMOXICILLIN/K CLAV 875/125MG TABLET. PO ONE (11:45)
[2020-04-20] MEDS ORDERED: POLYETHYLENE GLYCOL 3350 17 GM PACKET. PO ONE (12:00)
[2020-04-20] MEDS: DOCUSATE SODIUM 100 MG CAPSULE. PO SCH (12:34)
--- NOTE | 2020-04-25 18:06 | PATHOLOGY ---
[facility] Accession Number: [id number] . 01 Material submitted: . appendix - APPENDIX . 01 Clinical history: . ACUTE APPENDICITIS . 02 Diagnosis: Appendix, laparoscopic appendectomy: - Acute appendicitis. . ([facility]; 04/25/2020) [facility] 04/25/2020 1548 Local . 02 Comment: There is no evidence of rupture. . ([facility]:mm; 04/25/2020) . 02 Electronically signed: . Nahun Polanco MD, Pathologist NPI- [id number] . 01 Gross description: . Received in formalin labeled "Marquis Grullon, appendix" is an appendix measuring 9.6 cm in length and ranging from 0.7-1.3 cm in diameter. The proximal margin is closed with a staple line. There is an attached portion of mesoappendix measuring 5.2 x 3.5 x 1.3 cm. The serosa is null-red with focal purulent exudate and hemorrhage in the distal half of the appendix. The specimen is sectioned to reveal a dilated lumen measuring up to 0.8 cm in the distal half. The dilated lumen is filled with fecal material. No perforations are identified. Berry Grower sections are submitted in cassette A1, with the proximal margin inked black. [place] [place] SYC/C 04/21/2020 1258 Local . 02 Pathologist provided ICD-10: K35.80 . 02 CPT . 774550 Specimen Comment: A courtesy copy of this report has been sent to [phone] Specimen Comment: Report sent to Performed at: [address], [place], [place] [id number] MD Timothy Zambrano MD Phone: [phone] Performed at: 02 [facility] [address] [place], [place] [id number] MD Nahun Polanco MD Phone: [phone]
== END 2020-04-20 13:51 | disposition home or self-care (01) ==
LOC: ER 11:00 → 4 NORTH 12:15
PROVIDERS: ADMIT Family Medicine; ATTEND Family Medicine
DX: A41.9 Sepsis, unspecified organism (principal); Z20.828 Contact with and (suspected) exposure to other viral communicable diseases; K35.80 Unspecified acute appendicitis; K76.0 Fatty (change of) liver, not elsewhere classified; Z87.891 Personal history of nicotine dependence
CPT/HCPCS: 36415; 44970; 74177; 80048; 80053; 80061; 81001; 83605; 83690; 85007; 85025; 87426; 96361; 96365; 96366; 96372; 96375; 96376; 99285; G0378; J0330; J1100; J1644; J1885; J2270; J2405; J2543; J2704; J2710; J3010; J3490; J7040; Q9967; U0003; G0379

== ENCOUNTER 2020-09-03 11:00 | Emergency (ER) | payer OTHER ==
[~2020-09-03] VITALS: Ht 170.2 cm; Wt 77.2 kg
[~2020-09-03 11:00] MED LIST changes: +DOCU-153 PO; +HYDR-2761 PO; +IBUP-1060 PO; +OXYC1TAB15 PO
[2020-09-03] MEDS ORDERED: BISACODYL 5 MG TABLET.DR. PO STA (12:42)
[2020-09-03] MEDS ORDERED: MAGNESIUM CITRATE 296 ML SOLUTION. PO ONE (12:45)
--- NOTE | 2020-09-03 13:04 | RAD ---
XR ABDOMEN 2V INDICATION: Reason: abd pain x3 months. constipation / Spl. Instructions: / History: . COMPARISON: None. TECHNIQUE: Supine view of the abdomen was obtained. FINDINGS: Nonobstructive bowel gas pattern. No free air on this limited supine image. Moderate colonic stool bu rden Limited view of the lower chest demonstrates no acute abnormality. No acute osseous abnormality. IMPRESSION: Nonobstructive bowel gas pattern. Moderate colonic stool burden, which may reflect constipation. Electronically signed by: Nikos Escobedo MD (09/03/2020 1:01 PM) [id number]
--- NOTE | 2020-09-03 13:13 | PHYS DOC ---
Past Medical History Past Medical History: Other Additional Past Medical Histor: arthritis, hiatal hernia, appy (HERMIL[employer]ATTIE [employer] MACHINE OPERATOR) Past Surgical History: Appendectomy (HER[employer]IE [employer] MACHINE OPERATOR) Smoking Status: Former Smoker Alcohol Use: Occasionally (HERMIL[employer]ATTIE [employer] M[employer]ING MACHINE OPERATOR) General Adult EDM: Chief Complaint: ABDOMINAL PAIN HPI: HPI: Patient is a 44 year old male with no significant medical history who presents to the ED today complaining of a sharp moderate left lower quadrant abdominal pain, symptoms on and off for 1 month. Patient states he was seen by the PCP a month ago and was diagnosed with constipation and a stomach ulcer. He was put on an antiacid and started on MiraLAX. Last bowel movement was yesterday. Denies any nausea or vomiting, denies anything exacerbating or relieving his pain (HERMILAPATTIE Forbes [employer] M[employer]ING MACHINE OPERATOR) Review of Systems: Review of Systems: Constitutional: Denies fever or chills. [] Eyes: Denies change in visual acuity. [] HENT: Denies nasal congestion or sore throat. [] Respiratory: Denies cough or shortness of breath. [] Cardiovascular: Denies chest pain or edema. [] GI: Reports left lower quadrant abdominal pain, denies nausea, vomiting, bloody stools or diarrhea. [] : Denies dysuria. [] Musculoskeletal: Denies back pain or joint pain. [] Integument: Denies rash. [] Neurologic: Denies headache, focal weakness or sensory changes. [] Psychiatric: Denies depression or anxiety. [] (PATTIE [employer]ING [employer] M[employer]ING MACHINE OPERATOR) Heart Score: C/O Chest Pain: N/A Risk Factors: Risk Factors: DM, Current or recent (<one month) smoker, HTN, HLP, family history of CAD, obesity. Risk Scores: Score 0 - 3: 2.5% MACE over next 6 weeks - Discharge Home Score 4 - 6: 20.3% MACE over next 6 weeks - Admit for Clinical Observation Score 7 - 10: 72.7% MACE over next 6 weeks - Early Invasive Strategies (P[employer]IE [employer]ING [employer] M[employer]ING MACHINE OPERATOR) Current Medications: Current Medications Medications (Trade) Dose Ordered Sig/Marcela Start Time Stop Time Status Last Admin Dose Admin Bisacodyl (Dulcolax Tab) 10 mg 1X STAT 09/03/20 12:42 09/03/20 12:45 DC Magnesium Citrate (Citroma) 296 ml 1X ONCE 09/03/20 12:45 09/03/20 12:46 DC (PATTIE [employer]ANING [employer] M[employer]ING MACHINE OPERATOR) Allergies: Allergies: Allergies Coded Allergies Type Severity Reaction Last Updated Verified No Known Drug Allergies 04/19/20 No (P[employer]IE [employer]ING [employer] M[employer]ING MACHINE OPERATOR) Physical Exam: PE: Constitutional: Well developed, well nourished, no acute distress, non-toxic appearance. [] HENT: Normocephalic, atraumatic, bilateral external ears normal, oropharynx moist, no oral exudates, nose normal. [] Eyes: PERRLA, EOMI, conjunctiva normal, no discharge. [] Neck: Normal range of motion, no tenderness, supple, no stridor. [] Cardiovascular:Heart rate regular rhythm, no murmur [] Lungs & Thorax: Bilateral breath sounds clear to auscultation [] Abdomen: Bowel sounds normal, rounded abdomen with left lower quadrant tenderness on exam, no right upper quadrant or right lower quadrant tenderness, no masses, no pulsatile masses. [] Skin: Warm, dry, no erythema, no rash. [] Back: No tenderness, no CVA tenderness. [] Extremities: No tenderness, no cyanosis, no clubbing, ROM intact, no edema. [] Neurologic: Alert and oriented X 3, normal motor function, normal sensory function, no focal deficits noted. [] Psychologic: Affect normal, judgement normal, mood normal. [] ([employer]IE [employer] M[employer]ING MACHINE OPERATOR) Current Patient Data: Vital Signs: Vital Signs Date Time Temp Pulse Resp B/P (MAP) Pulse Ox O2 Delivery O2 Flow Rate FiO2 09/03/20 12:00 98.8 76 18 120/74 (89) Room Air 98.8 (PATTIE [employer]ING [employer]ING MACHINE OPERATOR) EKG: EKG: [] (PATTIE CLEANING [employer] MILLING MACHINE OPERATOR) Radiology/Procedures: Radiology/Procedures: []PROCEDURE: ABDOMEN SUPINE & UPRIGHT XR ABDOMEN 2V INDICATION: Reason: abd pain x3 months. constipation / Spl. Instructions: / History: . COMPARISON: None. TECHNIQUE: Supine view of the abdomen was obtained. FINDINGS: Nonobstructive bowel gas pattern. No free air on this limited supine image. Moderate colonic stool burden Limited view of the lower chest demonstrates no acute abnormality. No acute osseous abnormality. IMPRESSION: Nonobstructive bowel gas pattern. Moderate colonic stool burden, which may refl ect constipation. Electronically signed by: Iron Escobedo MD (09/03/2020 1:01 PM) [id number] DICTATED and SIGNED BY: IRON ESCOBEDO MD DATE: 09/03/20 [id number] (PATTIE CLEANING APRN) Course & Med Decision Making: Course & Med Decision Making Pertinent Labs and Imaging studies reviewed. (See chart for details) This is a 44-year-old male patient presenting to the ED today with left lower quadrant abdominal pain for 1 month. Abdominal x-ray noted for moderate constipation. We will talk to patient about managing constipation and prevention. For management we requested he starts taking magnesium citrate daily for three days, continue MiraLAX, also take a stool softener. We will encourage patient to increase his dietary fiber intake and water intake as well as increase his activity level. We have also discussed enemas and suppositories. Follow-up with PCP (PATTIE CLEANING APRN) Marly Disclaimer: Dragjori Disclaimer: This electronic medical record was generated, in whole or in part, using a voice recognition dictation system. (PATTIE CLEANING APRN) Departure Departure Impression: Primary Impression: Constipation Qualified Codes: K59.00 - Constipation, unspecified Disposition: HOME / SELF CARE / HOMELESS Condition: STABLE Referrals: UNKNOWN PCP NAME (PCP) follow up with your primary care doctor Patient Instructions: Constipation, Adult, [id number] Additional Instructions: You were evaluated in the emergency room and noted to be constipated. We encourage you to increase your water intake to 64 ounces a day, increase your dietary fiber intake, this includes more fruits, vegetables. Continue taking MiraLAX, please take magnesium citrate every day for the next 3 days until you get a good normal bowel movement. Consider doing an enema or suppository tonight if you do not have a bowel movement. Consider taking a stool softener every day. Please follow-up with your doctor next week Attending Signature Attending Signature I have participated in the care of this patient and I have reviewed and agree with all pertinent clinical information above including history, exam, and recommendations. (SLOANE AGUIRRE DO) PATTIE CLEANING APRN September 03, 2020 13:12 SLOANE AGUIRRE DO September 03, 2020 17:41
[2020-09-03 13:20] VITALS: BP 124/72
== END 2020-09-03 13:20 | disposition home or self-care (01) ==
LOC: ER 11:00
DX: K59.00 Constipation, unspecified (principal); R10.32 Left lower quadrant pain; M19.90 Unspecified osteoarthritis, unspecified site; Z90.89 Acquired absence of other organs
CPT/HCPCS: 74021; 99283

== ENCOUNTER 2020-10-28 10:07 | Emergency (ER) | payer OTHER ==
[~2020-10-28] VITALS: Ht 170.2 cm; Wt 75.0 kg
--- NOTE | 2020-10-28 10:21 | ED.ADGEN ---
Past Medical History Past Medical History: Other Additional Past Medical Histor: arthritis, hiatal hernia, appy Past Surgical History: Appendectomy Smoking Status: Former Smoker Alcohol Use: Occasionally General Adult HPI: HPI: Patient is a 44 year old male coming in for left lower quad abdominal pain has been present for about 2 months. Patient states he was told he had a "blockage" last time he was seen and had been taking mag citrate and laxatives. Patient was seen by his primary care provider 2 to 3 weeks ago was started on Linzess. Patient states he has 3-4 bowel movements daily. States the pain is not different today but it is just not "gotten any better". Did not attempt to follow-up with his primary care to let them know the Linzess was not working. No vomiting or fevers. Denies any urinary complaints. Patient states that pain is worse with bending over. Has not changed with walking or eating. Review of Systems: Review of Systems: All other systems within normal limits except for as noted in the HPI Current Medications: Current Medications Medications (Trade) Dose Ordered Sig/Marcela Start Time Stop Time Status Last Admin Dose Admin Info (CONTRAST GIVEN -- Rx MONITORING) 1 each PRN DAILY PRN 10/28/20 11:00 10/30/20 10:59 Iohexol (Omnipaque 300 Mg/ml) 75 ml 1X ONCE 10/28/20 11:00 10/28/20 11:01 DC 10/28/20 11:09 75 ML Allergies: Allergies: Allergies Coded Allergies Type Severity Reaction Last Updated Verified No Known Drug Allergies 04/19/20 No Physical Exam: PE: Constitutional: Well developed, well nourished, no acute distress, non-toxic appearance. [] HENT: Normocephalic, atraumatic, bilateral external ears normal, nose normal. [] Eyes: PERRLA, conjunctiva normal, no discharge. [] Neck: No rigidity, supple, no stridor. [] Cardiovascular: Regular rate and rhythm, brisk cap refill [] Lungs & Thorax: Non labored symmetric respirations, no tachypnea or respiratory distress [] Abdomen: Soft, nondistended. Skin: Warm, dry, no erythema, no rash. [] Back: Unremarkable Extremities: No deformities, range of motion grossly intact, no lower extremity edema [] Neurologic: Alert and oriented X 3, no focal deficits noted. [] Psychologic: Affect normal, judgement normal, mood normal. [] Current Patient Data: Labs: Laboratory Tests Test 10/28/20 10:19 10/28/20 11:25 White Blood Count 9.2 x10^3/uL (4.0-11.0) Red Blood Count 4.85 x10^6/uL (4.30-5.70) Hemoglobin 15.7 g/dL (13.0-17.5) Hematocrit 45.3 % (39.0-53.0) Mean Corpuscular Volume 94 fL (79-100) Mean Corpuscular Hemoglobin 32 pg (25-35) Mean Corpuscular Hemoglobin Concent 35 g/dL (31-37) Red Cell Distribution Width 13.5 % (11.5-14.5) Platelet Count 229 x10^3/uL (140-400) Neutrophils (%) (Auto) 67 % (31-73) Lymphocytes (%) (Auto) 24 % (24-48) Monocytes (%) (Auto) 7 % (0-9) Eosinophils (%) (Auto) 2 % (0-3) Basophils (%) (Auto) 1 % (0-3) Neutrophils # (Auto) 6.1 x10^3/uL (1.8-7.7) Lymphocytes # (Auto) 2.2 x10^3/uL (1.0-4.8) Monocytes # (Auto) 0.7 x10^3/uL (0.0-1.1) Eosinophils # (Auto) 0.1 x10^3/uL (0.0-0.7) Basophils # (Auto) 0.1 x10^3/uL (0.0-0.2) Sodium Level 143 mmol/L (136-145) Potassium Level 4.1 mmol/L (3.5-5.1) Chloride Level 106 mmol/L (98-107) Carbon Dioxide Level 28 mmol/L (21-32) Anion Gap 9 (6-14) Blood Urea Nitrogen 13 mg/dL (8-26) Creatinine 1.0 mg/dL (0.7-1.3) Estimated GFR (Cockcroft-Gault) 81.2 BUN/Creatinine Ratio 13 (6-20) Glucose Level 104 mg/dL (70-99) H Calcium Level 8.6 mg/dL (8.5-10.1) Phosphorus Level 3.0 mg/dL (2.6-4.7) Magnesium Level 2.2 mg/dL (1.8-2.4) Total Bilirubin 0.6 mg/dL (0.2-1.0) Aspartate Amino Transferase (AST) 42 U/L (15-37) H Alanine Aminotransferase (ALT) 150 U/L (16-63) H Alkaline Phosphatase 81 U/L (46-116) Total Protein 7.1 g/dL (6.4-8.2) Albumin 4.2 g/dL (3.4-5.0) Albumin/Globulin Ratio 1.4 (1.0-1.7) Urine Collection Type Unknown Urine Color Yellow Urine Clarity Clear Urine pH 5.5 (<5.0-8.0) Urine Specific [place] >=1.030 (1.000-1.030) Urine Protein Negative mg/dL (NEG-TRACE) Urine Glucose (UA) Negative mg/dL (NEG) Urine Ketones (Stick) Negative mg/dL (NEG) Urine Blood Negative (NEG) Urine Nitrite Negative (NEG) Urine Bilirubin Negative (NEG) Urine Urobilinogen Dipstick 0.2 mg/dL (0.2 mg/dL) Urine Leukocyte Esterase Negative (NEG) Urine RBC 0 /HPF (0-2) Urine WBC 0 /HPF (0-4) Urine Bacteria 0 /HPF (0-FEW) Urine Mucus Slight /LPF Laboratory Tests 10/28/20 10:19 Laboratory Tests 10/28/20 10:19 Vital Signs: Vital Signs Date Time Temp Pulse Resp B/P (MAP) Pulse Ox O2 Delivery O2 Flow Rate FiO2 10/28/20 10:22 98.6 107 20 135/96 (109) 98 Room Air 98.6 EKG: EKG: [] Heart Score: C/O Chest Pain: No Risk Factors: Risk Factors: DM, Current or recent (<one month) smoker, HTN, HLP, family history of CAD, obesity. Risk Scores: Score 0 - 3: 2.5% MACE over next 6 weeks - Discharge Home Score 4 - 6: 20.3% MACE over next 6 weeks - Admit for Clinical Observation Score 7 - 10: 72.7% MACE over next 6 weeks - Early Invasive Strategies Radiology/Procedures: Radiology/Procedures: [] Course & Med Decision Making: Course & Med Decision Making Pertinent Labs and Imaging studies reviewed. (See chart for details) [] Dragon Disclaimer: Dragon Disclaimer: This electronic medical record was generated, in whole or in part, using a voice recognition dictation system. Departure Departure Impression: Primary Impression: Abdominal pain Disposition: HOME / SELF CARE / HOMELESS Condition: STABLE Referrals: UNKNOWN PCP NAME (PCP) Patient Instructions: Abdominal Pain (Nonspecific) Additional Instructions: Follow-up with your primary care provider for further testing of chronic abdominal pain. Your evaluation today showed no acute or emergent causes of your pain. SHRAVAN ACEVEDO MD Oct 28, 2020 10:21
[2020-10-28 10:41] LABS: BASO # 0.1 x10^3/uL (0.0-0.2); BASO % 1 % (0-3); EOS # 0.1 x10^3/uL (0.0-0.7); EOS % 2 % (0-3); HEMATOCRIT 45.3 % (39.0-53.0); HEMOGLOBIN 15.7 g/dL (13.0-17.5); LYMPH # 2.2 x10^3/uL (1.0-4.8); LYMPH % 24 % (24-48); MEAN CORPUSCULAR HEMOGLOBIN 32 pg (25-35); MEAN CORPUSCULAR HGB CONC 35 g/dL (31-37); MEAN CORPUSCULAR VOLUME 94 fL (79-100); MONO # 0.7 x10^3/uL (0.0-1.1); MONO % 7 % (0-9); NEUT # 6.1 x10^3/uL (1.8-7.7); NEUT % 67 % (31-73); PLATELET COUNT 229 x10^3/uL (140-400); RED BLOOD COUNT 4.85 x10^6/uL (4.30-5.70); RED CELL DISTRIBUTION WIDTH 13.5 % (11.5-14.5); WHITE BLOOD COUNT 9.2 x10^3/uL (4.0-11.0)
[2020-10-28 10:48] LABS: CALCIUM 8.6 mg/dL (8.5-10.1); GFR 81.2; POTASSIUM 4.1 mmol/L (3.5-5.1)
[2020-10-28 10:54] LABS: ALBUMIN 4.2 g/dL (3.4-5.0); ALBUMIN/GLOBULIN RATIO 1.4 (1.0-1.7); MAGNESIUM 2.2 mg/dL (1.8-2.4); TOTAL BILIRUBIN 0.6 mg/dL (0.2-1.0); TOTAL PROTEIN 7.1 g/dL (6.4-8.2)
[2020-10-28] MEDS ORDERED: IOHEXOL 300 MG/ML 100ML VIAL. IV ONE (11:00)
[2020-10-28] MEDS ORDERED: CONTRAST GIVEN. MC PRN (11:00)
--- NOTE | 2020-10-28 11:17 | RAD ---
EXAM: Abdomen and pelvis CT with intravenous contrast. HISTORY: Left lower quadrant pain. TECHNIQUE: Computed tomographic images of the abdomen and pelvis were obtained following the administ ration of intravenous contrast. Multiplanar reformatting was performed. *One or more of the following individualized dose reduction techniques were utilized for this examina tion: 1. Automated exposure control. 2. Adjustment of the mA and/or kV according to patient size. 3. Use of iterative reconstruction technique. COMPARISON: 04/19/2020. FINDINGS: Evaluation of the lower thorax demonstrates posterior dependent atelectasis. There is linea r atelectasis or scarring within the lingula and medial right middle lobe. There are 2 mm nodules wit hin the lateral right lower lobe, likely benign based on size. There is hepatic steatosis. No focal hepatic lesion is seen. The gallbladder, pancreas, spleen and ad renal glands are unremarkable. There is a tiny anterior left renal cortical cyst. Follow up is not ro utinely performed for simple cysts. The appendix is absent. There is no evidence of bowel obstruction. There is no abnormal bowel wall th ickening. The bladder is unremarkable. The aorta is normal in caliber. There is no lymphadenopathy. IMPRESSION: 1. No acute abdominal or pelvic finding. 2. Hepatic steatosis. Electronically signed by: Makayla Escamilla MD (10/28/2020 11:14 AM) [id number]
[2020-10-28 11:39] LABS: BILIRUBIN,URINE NEGATIVE (NEG); CLARITY,URINE CLEAR; COLOR,URINE YELLOW; NITRITE,URINE NEGATIVE (NEG); PH,URINE 5.5 (<5.0-8.0); PROTEIN,URINE NEGATIVE (NEG-TRACE); UROBILINOGEN,URINE 0.2 mg/dL (0.2 mg/dL)
[2020-10-28 11:45] VITALS: BP 107/66
[2020-10-28 12:02] LABS: BACTERIA,URINE 0 /HPF (0-FEW); RBC,URINE 0 /HPF (0-2); WBC,URINE 0 /HPF (0-4)
== END 2020-10-28 12:29 | disposition home or self-care (01) ==
LOC: ER 10:07
DX: R10.32 Left lower quadrant pain (principal); M19.90 Unspecified osteoarthritis, unspecified site; Z90.89 Acquired absence of other organs
CPT/HCPCS: 36415; 74177; 80053; 81001; 83735; 84100; 85025; 99285; Q9967

== ENCOUNTER 2021-05-04 12:32 | Emergency (ER) | payer SELFPAY ==
[~2021-05-04] VITALS: Ht 170.2 cm; Wt 79.3 kg
[~2021-05-04 12:32] MED LIST changes: +DOCU-148 PO; -DOCU-153 PO
[2021-05-04 13:39] VITALS: BP 126/78
--- NOTE | 2021-05-04 14:22 | PHYS DOC ---
Past Medical History Past Medical History: Other Additional Past Medical Histor: arthritis, hiatal hernia, appy Past Surgical History: Appendectomy Smoking Status: Former Smoker Additional Information: quit smoking 07/2020 Alcohol Use: Rarely General Adult EDM: Chief Complaint: COUGH HPI: HPI: Patient is a 45-year-old male that presents today with need a work excuse for his Covid positive status. Patient states that on April 26, 2021 him and his family tested positive for COVID-19, patient continues to have cough and low- grade fever, his work is needing him to have a work excuse to stay off the full 10 days after his Covid positive or symptoms started. Patient states his symptoms started on the that evening after he was tested positive. Patient still continues to have a cough, he denies fever and chills, states that he is a little bit winded when he walks long distances. Review of Systems: Review of Systems: Constitutional: Denies fever or chills. [] Eyes: Denies change in visual acuity. [] HENT: Denies nasal congestion or sore throat. [] Respiratory: Cough Cardiovascular: Denies chest pain or edema. [] GI: Denies abdominal pain, nausea, vomiting, bloody stools or diarrhea. [] : Denies dysuria. [] Musculoskeletal: Denies back pain or joint pain. [] Integument: Denies rash. [] Neurologic: Denies headache, focal weakness or sensory changes. [] Endocrine: Denies polyuria or polydipsia. [] Lymphatic: Denies swollen glands. [] Psychiatric: Denies depression or anxiety. [] Heart Score: C/O Chest Pain: N/A Risk Factors: Risk Factors: DM, Current or recent (<one month) smoker, HTN, HLP, family history of CAD, obesity. Risk Scores: Score 0 - 3: 2.5% MACE over next 6 weeks - Discharge Home Score 4 - 6: 20.3% MACE over next 6 weeks - Admit for Clinical Observation Score 7 - 10: 72.7% MACE over next 6 weeks - Early Invasive Strategies Allergies: Allergies: Allergies Coded Allergies Type Severity Reaction Last Updated Verified No Known Drug Allergies 05/04/21 No Physical Exam: PE: Constitutional: Well developed, well nourished, no acute distress, non-toxic appearance. [] HENT: Normocephalic, atraumatic, bilateral external ears normal, oropharynx moist, no oral exudates, nose normal. [] Eyes: PERRLA, EOMI, conjunctiva normal, no discharge. [] Neck: Normal range of motion, no tenderness, supple, no stridor. [] Cardiovascular:Heart rate regular rhythm, no murmur [] Lungs & Thorax: Bilateral breath sounds clear to auscultation [] Abdomen: Bowel sounds normal, soft, no tenderness, no masses, no pulsatile masses. [] Skin: Warm, dry, no erythema, no rash. [] Back: No tenderness, no CVA tenderness. [] Extremities: No tenderness, no cyanosis, no clubbing, ROM intact, no edema. [] Neurologic: Alert and oriented X 3, normal motor function, normal sensory function, no focal deficits noted. [] Psychologic: Affect normal, judgement normal, mood normal. [] Current Patient Data: Vital Signs: Vital Signs Date Time Temp Pulse Resp B/P (MAP) Pulse Ox O2 Delivery O2 Flow Rate FiO2 05/04/21 13:39 97.7 82 12 126/78 (94) 99 Room Air 97.7 EKG: EKG: [] Radiology/Procedures: Radiology/Procedures: [] Course & Med Decision Making: Course & Med Decision Making Pertinent Labs and Imaging studies reviewed. (See chart for details) Reviewed patient's vital signs patient's oxygenation is within normal limits no increased work of breathing is noted I do not believe at this time the patient needs a chest x-ray. Patient will be given a work excuse to leave off on 05/08/2021, I told him if he needs any further days he will need to follow-up with his primary care physician for further management of that. Patient verbalized understanding of this and is agreeable to the plan of care. Marly Disclaimer: Marly Disclaimer: This electronic medical record was generated, in whole or in part, using a voice recognition dictation system. Departure Departure Impression: Primary Impression: COVID-19 Additional Impression: Cough Disposition: HOME / SELF CARE / HOMELESS Condition: LEFT WITHOUT BEING SEEN Referrals: SERAFIN CELESTIN APRN (PCP) Additional Instructions: You have been tested for or diagnosed with COVID-19. It is an infection caused by a new type of coronavirus. COVID-19 will cause cold-like or mild flu symptoms in most. It can cause more severe symptoms like problems breathing in some. There is no treatment for COVID-19. The body will clear the infection over time. Self-care will help to ease discomfort. Steps to Take: Self-Care Rest as needed. Healthy habits may help you feel better. Steps include: Choose healthy foods including fruits and vegetables. Drink water throughout the day. Get plenty of sleep each night. If you smoke, try to quit. It may ease breathing. Avoid alcohol. Keep Others Healthy The virus can spread to others. Droplets are released every time you sneeze or cough. The droplets can get into the mouth, nose, or eyes of people near you and lead to infection. To lower the chances of spreading COVID-19 to others: Stay at home until your doctor has said it is safe to leave. If you tested positive this will mean staying isolated until both of the following are true: At least 10 days have passed since the start of illness. You are free of fever for at least 72 hours without the use of medicine. During this time: - Avoid public areas, events, or transportation. Do not return to work or school until your doctor has said it is safe to do so. - Call ahead if you need to go to a medical center. Let them know you may have COVID-19. It will help them guide you where to go. They may also ask you to wear a facemask when you come to the office. - If you call for emergency medical services, let them know you may have COVID- 19. While at home: - Try to avoid close contact with others. Stay about 6 feet away. - If possible, spend most of your time in a separate room from others. - Use a face mask if you will be in close contact with others such as sharing a room or vehicle. - Have someone wipe down common surfaces in the home. Use household [employer] stitcher every day on areas like doorknobs, counters, or sinks. - Cough or sneeze into a tissue. Throw the tissue away right after use. If a ti ssue is not available, cough or sneeze into your elbow. - Wash your hands often. Wash them after sneezing or coughing. Use soap and water and wash for at least 20 seconds. Alcohol based hand mercury cell cleaner can be used if soap and water is not available. - Do not prepare food for others. Avoid sharing personal items like forks, spoons, or toothbrushes. - Avoid close contact with pets while you are sick. There is no evidence of the virus passing to pets. This is a safety step until more is known about this virus. Isolation can be frustrating. Social interaction can help. Keep in touch with friends and family through phone and tech options. You can still interact with others in your home, just keep a safe distance of about 6 feet. Follow-up: Your doctors office will check in with you to see if there are any changes in your health. You may be asked to keep track of symptoms to share with them. They will also let you know when you are clear to be in public again. Problems to Look Out For: Contact your doctor if your recovery is not going as you expect. Get emergency care if you have problems such as: - Trouble breathing - Nonstop chest pain or pressure - Changes in awareness, confusion, or problems waking - Lips or face have bluish color - Worsening of symptoms If you think you have an emergency, call for emergency medical services right away. As taken from [facility] HANS ZUNIGA APRN May 04, 2021 14:22
== END 2021-05-04 14:40 | disposition home or self-care (01) ==
LOC: ER 12:32
DX: U07.1 COVID-19 (principal); Z87.891 Personal history of nicotine dependence
CPT/HCPCS: 99281